=== PATIENT | male | born 1965 | race Caucasian/White ===

== ENCOUNTER 2020-04-16 12:25 | Inpatient (IN) | payer BC ==
[2020-04-16 12:44] LABS: HEMATOCRIT 28.8 % (37.9-51.0); HEMOGLOBIN 9.7 g/dL (13.5-17.0); MEAN CORPUSCULAR HEMOGLOBIN 34.7 pg (27.0-33.4); MEAN CORPUSCULAR HGB CONC 33.6 g/dL (32.0-36.0); MEAN CORPUSCULAR VOLUME 103 fl (80-97); RED BLOOD COUNT 2.79 10^6/uL (4.35-5.55); WHITE BLOOD COUNT 14.3 10^3/uL (4.0-10.5)
[2020-04-16 12:47] LABS: INTERNATIONAL RATION (INR) 2.01; PROTHROMBIN TIME 22.8 SEC (11.4-15.4)
--- NOTE | 2020-04-16 12:55 | ER Document Report ---
ED General - General Stated Complaint: UNRESPONSIVE Time Seen by Provider: 04/16/20 12:35 Mode of Arrival: Medic Information source: Emergency Med Personnel Cannot obtain history due to: Intubated Notes: Patient is a 54-year-old male brought into the emergency department by EMS. Patient was found at home to be unresponsive. states the patient was seen at [facility] yesterday. She states this morning the last time she checked on him was 7 AM and she thought he was sleeping however as the day went on she realized that he was unresponsive. EMS state that the patient has a history of cirrhosis otherwise no known medical history except for a ventral hernia and an umbilical hernia. They state that the patient was seen yesterday at the other hospital for the umbilical hernia. The remainder of history of present illness and review of systems is unobtainable secondary to the patient condition. TRAVEL OUTSIDE OF THE [place] IN LAST 30 DAYS: No - HPI Onset: This morning Onset/Duration: Persistent Quality of pain: No pain Severity: None Pain Level: Denies Associated symptoms: Shortness of breath Exacerbated by: Denies Relieved by: Denies Similar symptoms previously: No Recently seen / treated by doctor: Yes - Related Data Allergies/Adverse Reactions: codeine Allergy (Verified 04/16/20 14:21) prednisone Allergy (Verified 04/16/20 14:21) Past Medical History - General Information source: Relative, Emergency Med Personnel Cannot obtain history due to: Intubated - Social History Smoking Status: Smoker,Current Status Unk Frequency of alcohol use: unk Drug Abuse: Other Lives with: Spouse/Significant other Family History: Other - uto Patient has suicidal ideation: No Patient has homicidal ideation: No GI Medical History: Reports: Hx Cirrhosis, Other - ventral hernia, umbilical hernia Surgical Hx: Other - uto Review of Systems - Review of Systems -: Yes ROS unobtainable due to patient's medical condition Physical Exam - Vital signs Vitals: Resp Pulse Ox 12 100 04/16/20 12:24 04/16/20 12:24 - Notes Notes: PHYSICAL EXAMINATION: GENERAL: Patient is a 54-year-old male presenting to the emergency department intubated via EMS secondary to unresponsiveness HEAD: Atraumatic, normocephalic. EYES: Pupils equal round sclera anicteric, conjunctiva are mildly injected. ENT: nares patent, oropharynx clear without exudates. Moist mucous membranes. NECK: Trachea is midline neck secured by c-collar, supple without lymphadenopathy, no appreciable JVD LUNGS: Lungs clear to auscultation bilaterally and equal. No wheezes rales or rhonchi. HEART: Regular rate and rhythm without murmurs ABDOMEN: Soft, nontender, normal bowel sounds. No guarding, no rebound. No masses appreciated. EXTREMITIES: Active full range of motion, no pitting or edema. No cyanosis. 2+ pulses x4 NEUROLOGICAL: No focal neurological deficits. Moves all extremities spontaneously and on command. SKIN: Warm, Dry, and intact. Normal turgor, no rashes or lesions noted. Course - Re-evaluation Re-evalutation: 04/16/20 17:01 On presentation to the emergency department [facility] and evaluation of heart and lungs was accomplished by me. I instructed respiratory therapy to move the endotracheal tube back 1 cm due to right-sided lung sounds only. EKG radiologic studies as well as laboratory studies were ordered. Patient has been maintained on a bus driver/monitor the entire time in the [facility]. As of this time the patient has not needed any further sedation. Endotracheal tube, [place] catheter and NG tube are all in place without difficulty. Radiology did call and request that the ET tube be backed up another several centimeters because it was still right mainstem. I talked at great length with the patient's she stated that they were seen at another facility yesterday because of abdominal pain and concern for small bowel obstruction but were eventually discharged and instructed to follow-up. states the patient has longstanding alcoholic cirrhosis and does take lactulose at home but because of abdominal pain nausea and vomiting he has not been taking as much recently. She states that about 10:00 last night she went to sleep. She states this morning when she woke up was still in his recliner chair was maintaining an airway but sleeping. She states later on when she tried to arouse him she realized that he was not arousable and activated EMS. Patient laboratory studies have been reviewed. Patient has received lactulose through the NG tube because of remarkably elevated ammonia level. Patient is also received 2 L IV fluids because of elevated lactate level and slightly dilated potassium level. Patient has been consulted to the stunt driver for admission. He is agreeable with admitting the patient and is agreeable with care plan as has been initiated at this time. - Vital Signs Vital signs: Temp Pulse Resp BP Pulse Ox 95.9 F L 12 136/62 H 100 04/16/20 16:21 04/16/20 16:21 04/16/20 16:21 04/16/20 16:29 - Laboratory Result Diagrams: 04/16/20 12:23 04/16/20 12:23 Laboratory results interpreted by me: 04/16/20 04/16/20 04/16/20 12:23 12:23 12:23 WBC 14.3 H RBC 2.79 L Hgb 9.7 L Hct 28.8 L MCV 103 H MCH 34.7 H RDW 16.0 H Plt Count 144 L Monocytes % (Manual) 2 L Metamyelocytes % 2 H Abs Neuts (Manual) 11.9 H PT 22.8 H APTT ABG pH ABG pO2 ABG HCO3 ABG Total CO2 ABG O2 Saturation Potassium 5.6 H Carbon Dioxide 15 L Anion Gap 22 H BUN 53 H Creatinine 4.02 H Est GFR ( Amer) 19 L Est GFR (MDRD) Non-Af 16 L Glucose 152 H Lactic Acid Total Bilirubin 4.0 H Direct Bilirubin 1.0 H Ammonia NT-Pro-B Natriuret Pep Lipase 394.6 H Urine Protein Salicylates < 1.0 L Acetaminophen < 10 L 04/16/20 04/16/20 04/16/20 12:23 12:23 12:23 WBC RBC Hgb Hct MCV MCH RDW Plt Count Monocytes % (Manual) Metamyelocytes % Abs Neuts (Manual) PT APTT ABG pH ABG pO2 ABG HCO3 ABG Total CO2 ABG O2 Saturation Potassium Carbon Dioxide Anion Gap BUN Creatinine Est GFR ( Amer) Est GFR (MDRD) Non-Af Glucose Lactic Acid 10.7 H Total Bilirubin Direct Bilirubin Ammonia 1278.3 H NT-Pro-B Natriuret Pep 772 H Lipase Urine Protein Salicylates Acetaminophen 04/16/20 04/16/20 04/16/20 12:34 14:23 14:23 WBC RBC Hgb Hct MCV MCH RDW Plt Count Monocytes % (Manual) Metamyelocytes % Abs Neuts (Manual) PT APTT ABG pH 7.17 L* ABG pO2 149.4 H ABG HCO3 15.4 L ABG Total CO2 16.7 L ABG O2 Saturation 98.4 H Potassium Carbon Dioxide Anion Gap BUN Creatinine Est GFR ( Amer) Est GFR (MDRD) Non-Af Glucose Lactic Acid Total Bilirubin Direct Bilirubin Ammonia 1104.0 H NT-Pro-B Natriuret Pep Lipase Urine Protein 30 H Salicylates Acetaminophen 04/16/20 15:55 WBC RBC Hgb Hct MCV MCH RDW Plt Count Monocytes % (Manual) Metamyelocytes % Abs Neuts (Manual) PT 23.3 H APTT 40.5 H ABG pH ABG pO2 ABG HCO3 ABG Total CO2 ABG O2 Saturation Potassium Carbon Dioxide Anion Gap BUN Creatinine Est GFR ( Amer) Est GFR (MDRD) Non-Af Glucose Lactic Acid Total Bilirubin Direct Bilirubin Ammonia NT-Pro-B Natriuret Pep Lipase Urine Protein Salicylates Acetaminophen - Diagnostic Test Radiology reviewed: Reports reviewed - EKG Interpretation by Me EKG shows normal: Sinus rhythm Rate: Tachycardia Rhythm: NSR When compared to previous EKG there are: Previous EKG unavailable Additional EKG results interpreted by me: 04/16/20 12:54 EKG is interpreted by me shows sinus tachycardia rate of 114 bpm there is no ST elevation no axis deviation no ectopy at this time there is no old EKG available for comparison. Critical Care Note - Critical Care Note Total time excluding time spent on procedures (mins): 45 Comments: Please allow 45 minutes of critical care time spent obtaining history from patient or surrogate, discussions with consultants, development of treatment plan with patient or surrogate, evaluation of patient's response to treatment, examination of patient. This also includes ordering and reviewing laboratory, EKG and / or radiologic studies, performing and reassessing treatments and interventions as well as reviewing previous visits and old charts. This is exclusive of separately billable procedures. Discharge - Discharge Clinical Impression: Hyperammonemia, Elevated lactic acid level, Hyperkalemia Altered mental status Qualifiers: Altered mental status type: coma Coma depth: [place]lyss[place] coma 3-8 Coma timing: in the field (EMT or ambulance) Qualified Code(s): R40.2431 - [place] coma scale score 3-8, in the field [EMT or ambulance] Condition: Critical Disposition: ADMITTED INPATIENT Admitting Provider: Darrell (Fabric Designer) Unit Admitted: ICU
[2020-04-16 12:59] LABS: ABSOLUTE LYMPHOCYTES# (MANUAL) 2.1 10^3/uL (0.5-4.7); ABSOLUTE MONOCYTES # (MANUAL) 0.3 10^3/uL (0.1-1.4); BAND NEUTROPHILS % (MANUAL) 3 % (3-5); BASOPHILS % (MANUAL) 0 % (0-2); EOSINOPHILS % (MANUAL) 0 % (0-6); LYMPHOCYTES % (MANUAL) 14 % (13-45); METAMYELOCYTES % (MANUAL) 2 % (0-1); MONOCYTES % (MANUAL) 2 % (3-13); POIKILOCYTOSIS 1+; SEGMENTED NEUTROPHILS % (MAN) 78 % (42-78); TOTAL CELLS COUNTED 100
[2020-04-16 13:00] LABS: PLATELET CLUMPS PRESENT; PLATELET COMMENT DECREASED
[2020-04-16 13:01] LABS: POLYCHROMASIA SLIGHT
[2020-04-16 13:02] LABS: ALBUMIN 3.6 g/dL (3.5-5.0); ALKALINE PHOSPHATASE 102 U/L (38-126); ANISOCYTOSIS 1+; ASPARTATE AMINO TRANSFERASE 39 U/L (17-59); BLOOD UREA NITROGEN 53 mg/dL (7-20); CALCIUM 8.6 mg/dL (8.4-10.2); GLUCOSE 152 mg/dL (75-110); OVALOCYTES 1+; POTASSIUM 5.6 mmol/L (3.6-5.0); TOTAL PROTEIN 6.5 g/dL (6.3-8.2)
[2020-04-16 13:03] LABS: PLATELET COUNT 144 10^3/uL (150-450)
[2020-04-16 13:07] LABS: CARBON DIOXIDE 15 mmol/L (22-30); CHLORIDE 101 mmol/L (98-107)
[2020-04-16 13:09] LABS: ACETAMINOPHEN < 10 ug/mL (10-30); ALCOHOL < 10 mg/dL (NONE DETECTED); SALICYLATE < 1.0 mg/dL (2.0-20.0)
[2020-04-16 13:14] LABS: ANION GAP 22 (5-19); CREATINE KINASE MB 3.84 ng/mL (<4.55)
[2020-04-16 13:15] LABS: TROPONIN I 0.046 ng/mL
[2020-04-16 13:33] LABS: APPEARANCE,URINE SLIGHTLY-CLOUDY; BILIRUBIN,URINE NEGATIVE (NEGATIVE); GLUCOSE, URINE NEGATIVE (NEGATIVE); KETONES,URINE NEGATIVE (NEGATIVE); LEUKOCYTE ESTERASE,URINE NEGATIVE (NEGATIVE); NITRITE,URINE NEGATIVE (NEGATIVE); PROTEIN,URINE 30 mg/dL (NEGATIVE); URINE SPECIFIC GRAVITY 1.019; UROBILINOGEN,URINE NEGATIVE mg/dL (<2.0)
[2020-04-16 13:34] LABS: COLOR,URINE ORANGE
[2020-04-16 13:44] LABS: URINE AMPHETAMINES SCREEN NEGATIVE; URINE BARBITURATES SCREEN NEGATIVE; URINE BENZODIAZEPINES SCREEN NEGATIVE; URINE COCAINE SCREEN NEGATIVE; URINE MARIJUANA (THC) SCREEN NEGATIVE; URINE METHADONE SCREEN NEGATIVE; URINE PHENCYCLIDINE SCREEN NEGATIVE
[2020-04-16] MEDS ORDERED: LACTULOSE SYRUP 20 GM/30 ML UDCUP PO ONE (14:02)
[2020-04-16 14:42] LABS: ARTERIAL BLOOD BASE EXCESS -12.4 mmol/L; ARTERIAL BLOOD H2CO3 1.29 mmol/L (1.05-1.35); ARTERIAL BLOOD HCO3 15.4 mmol/L (20-24); ARTERIAL BLOOD O2 SATURATION 98.4 % (94-98); ARTERIAL BLOOD PCO2 42.8 mmHg (35-45); ARTERIAL BLOOD PO2 149.4 mmHg (80-100); ARTERIAL BLOOD TOTAL CO2 16.7 mmol/L (23-27)
[2020-04-16 14:43] LABS: ARTERIAL BLOOD FIO2 50%
[2020-04-16 14:44] LABS: ARTERIAL BLOOD PH 7.17 (7.35-7.45)
[2020-04-16] MEDS: NORMAL SALINE 1000 ML 1,000 ML IV PRN ×2 (14:54→15:58)
--- NOTE | 2020-04-16 15:14 | EKG REPORT ---
SEVERITY:- BORDERLINE ECG - SINUS TACHYCARDIA BORDERLINE R WAVE PROGRESSION, ANTERIOR LEADS BORDERLINE PROLONGED QT INTERVAL : Confirmed by: Hollie Welch MD 16-Apr-2020 15:13:31
[2020-04-16 16:40] LABS: INTERNATIONAL RATION (INR) 2.06; PROTHROMBIN TIME 23.3 SEC (11.4-15.4)
[2020-04-16 16:41] LABS: PARTIAL THROMBOPLASTIN TIME 40.5 SEC (23.5-35.8)
--- NOTE | 2020-04-16 17:19 | RADIOLOGY REPORT (SQ) ---
EXAM DESCRIPTION: CT CERVICAL SPINE WITHOUT IMAGES COMPLETED DATE/TIME: 04/16/2020 1:56 pm REASON FOR STUDY: ams COMPARISON: None. TECHNIQUE: Axial images acquired through the cervical spine without intravenous contrast. Images re viewed with lung, soft tissue and bone windows. Reconstructed coronal and sagittal MPR images review ed. Images stored on PACS. All CT scanners at this facility use dose modulation, iterative reconstruction, and/or weight based d osing when appropriate to reduce radiation dose to as low as reasonably achievable (ALARA). [facility]: Dose Right [facility]: CareDose [facility]: Dose Right [facility]: Teradose 4D [facility]: [facility] RADIATION DOSE: mGy. LIMITATIONS: None. FINDINGS: ALIGNMENT: Anatomic. MINERALIZATION: Normal. VERTEBRAL BODIES: No fractures or dislocation. DISCS: Mild disc space narrowing with small osteophytes. FACETS, LATERAL MASSES, POSTERIOR ELEMENTS: No fractures. No dislocation. No acute findings. HARDWARE: None in the spine. VISUALIZED RIBS: No fractures. LUNG APICES AND SOFT TISSUES: No significant or acute findings. OTHER: No other significant finding. IMPRESSION: MILD DEGENERATIVE DISC DISEASE. NO ACUTE FINDINGS IN THE CERVICAL SPINE. TECHNICAL DOCUMENTATION: JOB ID: [id number] Quality ID # [id number]: Final reports with documentation of one or more dose reduction techniques (e.g., Au tomated exposure control, adjustment of the mA and/or kV according to patient size, use of iterative reconstruction technique) 2010 [employer]- All Rights Reserved Reading location - IP/workstation name: [email or web address]
--- NOTE | 2020-04-16 17:27 | RADIOLOGY REPORT (SQ) ---
EXAM DESCRIPTION: CHEST SINGLE VIEW IMAGES COMPLETED DATE/TIME: 04/16/2020 1:26 pm REASON FOR STUDY: intubation COMPARISON: None. EXAM PARAMETERS: NUMBER OF VIEWS: One view. TECHNIQUE: Single frontal radiographic view of the chest acquired. RADIATION DOSE: NA LIMITATIONS: None. FINDINGS: LUNGS AND PLEURA: Volume loss on the left with scattered parenchymal densities. Right jennifer g clear and may be hyperinflated. MEDIASTINUM AND HILAR STRUCTURES: No masses. Contour normal. HEART AND VASCULAR STRUCTURES: Heart normal in size. Normal vasculature. BONES: No acute findings. HARDWARE: Endotracheal tube, tip in the right mainstem bronchus. Nasogastric tube, tip in the stomac h. OTHER: No other significant finding. IMPRESSION: 1. THE TIP OF THE ENDOTRACHEAL TUBE IS IN THE RIGHT MAINSTEM BRONCHUS AND SHOULD BE WITHDRAWN BY 4-5 CM. 2. VOLUME LOSS IN THE LEFT LUNG WITH SCATTERED PARENCHYMAL DENSITIES, MAY BE DUE TO ATELECTASIS. UND ERLYING PNEUMONIA CANNOT BE EXCLUDED. 3. THE ED PROVIDER WAS NOTIFIED OF THE FINDINGS WITH REGARD TO THE ENDOTRACHEAL TUBE. TECHNICAL DOCUMENTATION: JOB ID: [id number] 2010 [employer]- All Rights Reserved Reading location - IP/workstation name: [email or web address]
--- NOTE | 2020-04-16 17:34 | RADIOLOGY REPORT (SQ) ---
EXAM DESCRIPTION: CT HEAD WITHOUT IMAGES COMPLETED DATE/TIME: 04/16/2020 1:56 pm REASON FOR STUDY: intubation COMPARISON: None. TECHNIQUE: Axial images acquired through the brain without intravenous contrast. Images reviewed wi th bone, brain and subdural windows. Additional sagittal and coronal reconstructions were generated. Images stored on PACS. All CT scanners at this facility use dose modulation, iterative reconstruction, and/or weight based d osing when appropriate to reduce radiation dose to as low as reasonably achievable (ALARA). [facility]: Dose Right [facility]: CareDose [facility]: Dose Right [facility]: Teradose 4D [facility]: [employer] RADIATION DOSE: mGy. LIMITATIONS: None. FINDINGS: VENTRICLES: Normal size and contour. CEREBRUM: No masses. No hemorrhage. No midline shift. No evidence for acute infarction. Normal gra y/white matter differentiation. No areas of low density in the white matter. CEREBELLUM: No masses. No hemorrhage. No alteration of density. No evidence for acute infarction. EXTRAAXIAL SPACES: No fluid collections. No masses. ORBITS AND GLOBE: No intra- or extraconal masses. Normal contour of globe without masses. CALVARIUM: No fracture. PARANASAL SINUSES: No fluid or mucosal thickening. SOFT TISSUES: No mass or hematoma. OTHER: No other significant finding. IMPRESSION: NORMAL BRAIN CT WITHOUT CONTRAST. EVIDENCE OF ACUTE STROKE: NO. COMMENT: Quality ID # [id number]: Final reports with documentation of one or more dose reduction techniques (e.g., Automated exposure control, adjustment of the mA and/or kV according to patient size, use of iterative reconstruction technique) TECHNICAL DOCUMENTATION: JOB ID: [id number] 2010 [employer]- All Rights Reserved Reading location - IP/workstation name: [email or web address]
--- NOTE | 2020-04-16 17:58 | RADIOLOGY REPORT (SQ) ---
EXAM DESCRIPTION: CHEST SINGLE VIEW IMAGES COMPLETED DATE/TIME: 04/16/2020 5:39 pm REASON FOR STUDY: placement verification of ET tube COMPARISON: 04/16/2020 EXAM PARAMETERS: NUMBER OF VIEWS: One view. TECHNIQUE: Single frontal radiographic view of the chest acquired. RADIATION DOSE: NA LIMITATIONS: None. FINDINGS: LUNGS AND PLEURA: Improved aeration of the left hemithorax. No large pleural effusion or pneumothorax are demonstrated. MEDIASTINUM AND HILAR STRUCTURES: No masses. Contour normal. HEART AND VASCULAR STRUCTURES: Heart normal in size. Normal vasculature. BONES: No acute findings. HARDWARE: Interval retraction of the endotracheal tube, which now terminates approximately 2.5 cm aircraft rigging and controls mechanic nial to the kenzie. Enteric tube terminates subdiaphragmatically out of the imaged field of view. OTHER: No other significant finding. IMPRESSION: Improved aeration of the left hemithorax on the basis retraction of the endotracheal tub e which now terminates approximately 2.5 cm cranial to the kenzie. Stable enteric tube. TECHNICAL DOCUMENTATION: JOB ID: [id number] 2010 [employer]- All Rights Reserved Reading location - IP/workstation name: [email or web address]
[2020-04-16] MEDS: CEFTRIAXONE 2 GM/D5W RTU 2 GM/50 ML RTUPB IV SCH (18:27)
[2020-04-16] MEDS: MIDAZOLAM 2 MG/2 ML INJ IV PRN ×3 (20:10→21:56)
[2020-04-16] MEDS: DEXTROSE 5%-WATER 1000 ML 1,000 ML with SODIUM BICARBONATE 150 MEQ IV PRN ×2 (20:11)
--- NOTE | 2020-04-16 21:04 | RADIOLOGY REPORT (SQ) ---
EXAM DESCRIPTION: Site: CHEST SINGLE VIEW RP: XR CHEST 1 VIEW CLINICAL HISTORY: 54 years Male; Resp Failure, Re-eval ETT position; FINDINGS: AP chest at 2020. Since 1731, endotracheal tube remains in place, estimated 2.5 cm above kenzie. Enteric tube extends into the stomach. Lungs are unchanged. No pneumothorax. IMPRESSION: 1. No significant change
[2020-04-16] MEDS ORDERED: LORAZEPAM INJ 2 MG/1 ML VIAL ONE (23:11)
[2020-04-16] MEDS ORDERED: ACETAMINOPHEN 650 MG SUPP.RECT PR PRN (23:12)
[2020-04-16] MEDS: LORAZEPAM INJ 2 MG/1 ML VIAL IV PRN (23:14)
--- NOTE | 2020-04-16 23:33 | Progress Note ---
Provider Note Provider Note: Called to bedside after arrival from ED. Pt with active sz. Moving eye twitching, facial movements, RUE, RLE in a rhythmic fashion. ETT in place Hemodynamics maintained. Decreased SpO2 2/2 above. Given ativan 2mg IV with resolution. D/c versed, ativan prn, drip if needed. Waiting Keppra from pharmacy/supervisor grain and yeast plants.
[2020-04-17] MEDS ORDERED: LEVETIRACETAM INJ/PF 500 MG/5 ML SDV IV ONE (00:25)
[2020-04-17] MEDS: LEVETIRACETAM 1000 MG/NACL-ISO 1,000 MG/100 ML RTUPB IV SCH ×3 (00:50→22:14)
[2020-04-17] MEDS ORDERED: LORAZEPAM INJ 2 MG/1 ML VIAL IV ONE (01:15)
[2020-04-17] MEDS: LORAZEPAM INJ 2 MG/1 ML VIAL IV PRN (03:41)
[2020-04-17 07:26] LABS: HEMATOCRIT 26.8 % (37.9-51.0); HEMOGLOBIN 9.2 g/dL (13.5-17.0); MEAN CORPUSCULAR HEMOGLOBIN 34.5 pg (27.0-33.4); MEAN CORPUSCULAR HGB CONC 34.4 g/dL (32.0-36.0); MEAN CORPUSCULAR VOLUME 100 fl (80-97); PLATELET COUNT 122 10^3/uL (150-450); RED BLOOD COUNT 2.67 10^6/uL (4.35-5.55); RED CELL DISTRIBUTION WIDTH 15.7 % (11.5-14.0); WHITE BLOOD COUNT 16.8 10^3/uL (4.0-10.5)
[2020-04-17 07:47] LABS: ANION GAP 16 (5-19); BLOOD UREA NITROGEN 71 mg/dL (7-20); CALCIUM 8.2 mg/dL (8.4-10.2); CARBON DIOXIDE 20 mmol/L (22-30); CHLORIDE 102 mmol/L (98-107); GLUCOSE 176 mg/dL (75-110)
[2020-04-17 07:51] LABS: POTASSIUM 4.3 mmol/L (3.6-5.0)
[2020-04-17] MEDS: DEXTROSE 5%-WATER 1000 ML 1,000 ML with SODIUM BICARBONATE 150 MEQ IV PRN ×4 (08:30→22:14)
[2020-04-17 09:05] LABS: ARTERIAL BLOOD BASE EXCESS -1.8 mmol/L; ARTERIAL BLOOD H2CO3 0.73 mmol/L (1.05-1.35); ARTERIAL BLOOD HCO3 19.9 mmol/L (20-24); ARTERIAL BLOOD O2 SATURATION 98.7 % (94-98); ARTERIAL BLOOD PCO2 24.3 mmHg (35-45); ARTERIAL BLOOD PH 7.53 (7.35-7.45); ARTERIAL BLOOD PO2 118.5 mmHg (80-100); ARTERIAL BLOOD TOTAL CO2 20.7 mmol/L (23-27)
[2020-04-17 09:06] LABS: ARTERIAL BLOOD FIO2 40%
--- NOTE | 2020-04-17 09:24 | CRITICAL CARE ADMISSION REPORT ---
HPI Date:: 04/16/20 Time:: 16:10 Reason for ICU Reason:: Unconsciousness, acute Respiraory Failure, Decompensated cirrhosis Admission Date/Time & PCP: Admission Date/Time: Primary Care Provider: HUGO TEJADA HPI: Patient is a 54-year-old male brought into the emergency department by EMS. Patient was found at home to be unresponsive. states the patient was seen at [facility] yesterday. She states this morning the last time she checked on him was 7 AM and she thought he was sleeping however as the day went on she realized that he was unresponsive. EMS state that the patient has a history of cirrhosis otherwise no known medical history except for a ventral hernia and an umbilical hernia. They state that the patient was seen yesterday at the other hospital for the umbilical hernia. The remainder of history of present illness and review of systems is unobtainable secondary to the patient condition. I was called by the ED physician after the patient was intubated and preliminary arianne obtained. As noted the patient has a long history of alcohol related cirrhosis. He presented with severe obtundation and "guppy-type" breathing to EMS who were called by thepatient's . The patient has been unresponsive for over 3 hours. The patient had a GCS of about 3 when I saw him in the ED. CT of the head is pending. He has a metabolic acidosis. He has renal insufficiency with a creat. of 4 of unknown duration. His blood sugar was slightly elevated when checked in the ED. His ammonia level was recorded as 1278. I do not believe the patient has had any recent GI bleed. His serum lactate was 10. The patient has a history of ascites and has had paracenteses in the past - Diagnosis/Plan (2) Altered mental status Qualifiers: Altered mental status type: coma Coma depth: [place] coma 3-8 Coma timing: in the field (EMT or ambulance) Qualified Code(s): R40.2431 - [place] coma scale score 3-8, in the field [EMT or ambulance] Is this a current diagnosis for this admission?: Yes Plan: The patient is clearly comatose. Unclear to what extent this is the result of liver decompensation or perhaps an infection or seizur eis unclear. The patienthas been placed onKeppra. He has been start on lactulose. EEG has been ordered The patient has been placed on IV Rocephin given his low grade fever and elevated WBC (3) Elevated lactic acid level Is this a current diagnosis for this admission?: Yes Plan: The patient presented acutely ill. He had a fever to 101. The source of fever is unclear. Unclear of the patient was shocky in the filed. if he had seized that could have cointributed to the lactate acidosis. in addition, given his comprromised liver fn. His abiolity ot clear lactat quickly idoes not exist. (4) Hyperammonemia Is this a current diagnosis for this admission?: Yes Plan: The patient has one of the highest ammonia levels I have ever seen. He is onlactulose and Rifaximin. I imagine it willtake several days to bring this number down to be able for him to wake up. CT head was unreamrkable. (5) Hyperkalemia Is this a current diagnosis for this admission?: Yes Plan: Likely secondary to acute kidney injury and acidemia.. (6) Acute kidney injury Is this a current diagnosis for this admission?: Yes Plan: The patient presents with an elevated serum creatinine of >4. His output is very poor The patient is likely to need GAS CONTROLLER in the next 24 hours. Will consult Nephrology. I don't see evidence of old renal fn. I just spke to his and she said his creat was 2.9 2 days ago. She said his assistant plant control operator was trying to get him in to see a nehrologist latelt. Past Medical History GI Medical History: Reports: Cirrhosis, Other - ventral hernia, umbilical hernia Social/Family History - Social History Lives with: Spouse/Significant other Smoking Status: Smoker,Current Status Unk - Medication/Allergies Home Medications: B Complx/C/Folic/Zinc/Copper/E [Eql Stress B-Complex Tablet] 1 tab PO DAILY 04/16/20 Calcium Carbonate/Vitamin D3 [Calcium 600 mg-D3 20 Mcg Tab] 1 tab PO BID 04/16/20 Cetirizine HCl [Zyrtec 10 mg Tablet] 10 mg PO DAILYP PRN 04/16/20 Ciprofloxacin HCl [Cipro 500 mg Tablet] 500 mg PO DAILY 04/16/20 Famotidine [Pepcid 20 mg Tablet] 40 mg PO DAILY 04/16/20 Hydrocodone/Acetaminophen [[place] 5-325 mg Tablet] 1 tab PO Q6HP PRN 04/16/20 Lactulose [Enulose] 30 ml PO TIDP PRN 04/16/20 Mirtazapine [Remeron 15 mg Tablet] 7.5 mg PO QHS 04/16/20 Multivit-Minerals/FA/Lycopene [One Daily Tablet] 1 tab PO DAILY 04/16/20 Omeprazole 40 mg PO DAILY 04/16/20 Ondansetron [Zofran Odt 4 mg Tablet] 4 mg PO Q8HP PRN 04/16/20 Rifaximin [Xifaxan 550 mg Tablet] 550 mg PO BID 04/16/20 Allergies/Adverse Reactions: codeine Allergy (Verified 04/16/20 14:21) prednisone Allergy (Verified 04/16/20 14:21) Physical Exam Vital Signs: Temp Pulse Resp BP Pulse Ox 95.1 F L 12 132/59 H 96 04/16/20 15:21 04/16/20 15:21 04/16/20 15:21 04/16/20 15:43 Intake & Output 04/15/20 04/16/20 04/17/20 06:59 06:59 06:59 Intake Total 1000 Balance 1000 Weight 84.3 kg Weight/Height Weight 84.3 kg Laboratory/Radiographs Laboratory Results: 04/16/20 12:23 04/16/20 12:23 04/16/20 04/16/20 04/16/20 12:23 12:23 12:23 WBC 14.3 H RBC 2.79 L Hgb 9.7 L Hct 28.8 L MCV 103 H MCH 34.7 H MCHC 33.6 RDW 16.0 H Plt Count 144 L Seg Neutrophils % Not Reportable Carbonic Acid HCO3/H2CO3 Ratio ABG pH ABG pCO2 ABG pO2 ABG HCO3 ABG O2 Saturation ABG Base Excess FiO2 Sodium 138.1 Potassium 5.6 H Chloride 101 Carbon Dioxide 15 L Anion Gap 22 H BUN 53 H Creatinine 4.02 H Est GFR ( Amer) 19 L Glucose 152 H Lactic Acid 10.7 H Calcium 8.6 Total Bilirubin 4.0 H AST 39 Alkaline Phosphatase 102 Ammonia Total Protein 6.5 Albumin 3.6 Lipase 394.6 H Urine Color Urine Appearance Urine pH Ur Specific [place] Urine Protein Urine Glucose (UA) Urine Ketones Urine Blood Urine Nitrite Ur Leukocyte Esterase Urine WBC (Auto) Urine RBC (Auto) 04/16/20 04/16/20 04/16/20 12:23 12:34 14:23 WBC RBC Hgb Hct MCV MCH MCHC RDW Plt Count Seg Neutrophils % Carbonic Acid 1.29 HCO3/H2CO3 Ratio 11:1 ABG pH 7.17 L* ABG pCO2 42.8 ABG pO2 149.4 H ABG HCO3 15.4 L ABG O2 Saturation 98.4 H ABG Base Excess -12.4 FiO2 50% Sodium Potassium Chloride Carbon Dioxide Anion Gap BUN Creatinine Est GFR ( Amer) Glucose Lactic Acid Calcium Total Bilirubin AST Alkaline Phosphatase Ammonia 1278.3 H Total Protein Albumin Lipase Urine Color ORANGE Urine Appearance SLIGHTLY-CLOUDY Urine pH 5.0 Ur Specific [place] 1.019 Urine Protein 30 H Urine Glucose (UA) NEGATIVE Urine Ketones NEGATIVE Urine Blood NEGATIVE Urine Nitrite NEGATIVE Ur Leukocyte Esterase NEGATIVE Urine WBC (Auto) 7 Urine RBC (Auto) 1 04/16/20 12:23 CK-MB (CK-2) 3.84 Troponin I 0.046 NT-Pro-B Natriuret Pep 772 H Critical Time Critical Time (minutes): 70 -: The care of a critically ill patient is dynamic. This note represents a static moment in the admission process. Orders and treatments may be given simultaneously and urgently, and time is not specialty sales representative of the treatment process. This patient requires Critical Care secondary to life threatening organ or limb dysfunction. Without Critical Care services, the patient is at risk for increased mortality and morbidity.
[2020-04-17] MEDS: LACTULOSE SYRUP 20 GM/30 ML UDCUP PO SCH ×3 (09:42→22:13)
[2020-04-17] MEDS: CEFTRIAXONE 2 GM/D5W RTU 2 GM/50 ML RTUPB IV SCH (09:43)
[2020-04-17] MEDS ORDERED: RIFAXIMIN 550 MG TABLET PO SCH (11:00)
--- NOTE | 2020-04-17 11:11 | RADIOLOGY REPORT (SQ) ---
EXAM DESCRIPTION: U/S RETROPERITON (RENAL/AORTA) IMAGES COMPLETED DATE/TIME: 04/17/2020 10:49 am REASON FOR STUDY: AMANDA COMPARISON: None. TECHNIQUE: Dynamic and static grayscale images acquired of the kidneys and bladder and recorded on P ACS. Additional selected color Doppler and spectral images recorded. LIMITATIONS: Study is limited the patient is intubated and could not follow instructions. FINDINGS: RIGHT KIDNEY: Normal size. Normal echogenicity. No solid or suspicious masses. No hydronep hrosis. No calcifications. LEFT KIDNEY: Normal size. Normal echogenicity. No solid or suspicious masses. No hydronephrosis. No calcifications. BLADDER: No masses. OTHER FINDINGS: There is small to moderate volume ascites. IMPRESSION: NORMAL RENAL AND BLADDER ULTRASOUND. TECHNICAL DOCUMENTATION: JOB ID: [id number] 2010 [employer]- All Rights Reserved Reading location - IP/workstation name: [email or web address]
--- NOTE | 2020-04-17 11:59 | PDOC CONSULTATION ---
Consultation Consult Date: 04/17/20 Provider Consulted: Shubham PARK Consult reason:: AMANDA History of Present Illness Admission Date/PCP: 04/16/20 16:33 HUGO TEJADA History of Present Illness: CARLIN KATZ is a 54 year old male was seen in the ICU today. He is intubated and sedated. Therefore history was done by chart review and discussions done with the treating nurse/biology teacher. Patient was admitted to the ER after being found unresponsive by his . Apparently the patient was discharged from [facility] a couple of days ago where he was apparently see n for evaluation of abdominal hernia apparently. As per notes reviewed the states that his creatinine has been around 2-3 and her pathologist was in the process of referring this patient to a restrooms or lounges maid.Patient has got underlying alcoholic cirrhosis with portal hypertension and apparently has been undergoing large-volume paracentesis every 1 to 2 weeks. Unsure to the circumstances around which the patient was found unresponsive. Unsure of any trauma or seizure disorder but note patient has been begun on Keppra. Labs and medications were reviewed. As stated metabolic acidosis and his lactic acid is quite high. His blood sugars were adequate and his ammonia levels was over 1000. Obviously has got AMANDA with rising creatinine from 4+. Covid pending. Patient is rather oligoanuric. Is got severe acidosis and is on a bicarbonate drip. Past Medical History GI Medical History: Reports: Cirrhosis, Other - ventral hernia, umbilical hernia Psychiatric Medical History: Denies: Depression Social History Lives with: Spouse/Significant other Smoking Status: Smoker,Current Status Unk Frequency of Alcohol Use: None - Advance Directive Resuscitation Status: Full Code Family History Parental Family History Reviewed: No - Patient intubated and sedated Children Family History Reviewed: No Sibling(s) Family History Reviewed.: No Medication/Allergy Home Medications: B Complx/C/Folic/Zinc/Copper/E [Eql Stress B-Complex Tablet] 1 tab PO DAILY 04/16/20 Calcium Carbonate/Vitamin D3 [Calcium 600 mg-D3 20 Mcg Tab] 1 tab PO BID 04/16/20 Cetirizine HCl [Zyrtec 10 mg Tablet] 10 mg PO DAILYP PRN 04/16/20 Ciprofloxacin HCl [Cipro 500 mg Tablet] 500 mg PO DAILY 04/16/20 Famotidine [Pepcid 20 mg Tablet] 40 mg PO DAILY 04/16/20 Hydrocodone/Acetaminophen [[place] 5-325 mg Tablet] 1 tab PO Q6HP PRN 04/16/20 Lactulose [Enulose] 30 ml PO TIDP PRN 04/16/20 Mirtazapine [Remeron 15 mg Tablet] 7.5 mg PO QHS 04/16/20 Multivit-Minerals/FA/Lycopene [One Daily Tablet] 1 tab PO DAILY 04/16/20 Omeprazole 40 mg PO DAILY 04/16/20 Ondansetron [Zofran Odt 4 mg Tablet] 4 mg PO Q8HP PRN 04/16/20 Rifaximin [Xifaxan 550 mg Tablet] 550 mg PO BID 04/16/20 Allergies/Adverse Reactions: codeine Allergy (Verified 04/16/20 14:21) prednisone Allergy (Verified 04/16/20 14:21) Review of Systems ROS unobtainable: Due to endotracheal tube - Chart review was done and discussions done with the treating nurse/biology teacher., Due to mental status Physical Exam Vital Signs: Temp Pulse Resp BP Pulse Ox 99.0 F 103 H 24 H 131/66 H 100 04/17/20 10:27 04/17/20 10:17 04/17/20 10:27 04/17/20 10:27 04/17/20 10:27 Intake & Output 04/16/20 04/17/20 04/18/20 06:59 06:59 06:59 Intake Total 2150 1000 Output Total 90 40 Balance 2060 960 Weight 84.6 kg General appearance: PRESENT: disheveled Exam: Patient currently intubated and sedated. Has abdominal distention from ascites Eye exam: PRESENT: EOMI, PERRLA, scleral icterus Mouth exam: PRESENT: neck supple Neck exam: ABSENT: lymphadenopathy, meningismus, tenderness, thyromegaly, tracheal deviation Respiratory exam: PRESENT: clear to auscultation mayela, decreased breath sounds. ABSENT: crackles Cardiovascular exam: PRESENT: +S1, +S2 GI/Abdominal exam: PRESENT: ascites, distended, normal bowel sounds, soft. ABSENT: organomegaly, tenderness Extremities exam: ABSENT: pedal edema Neurological exam: PRESENT: altered Skin exam: ABSENT: erythema, mottled, rash Results Laboratory Results: 04/17/20 07:02 04/17/20 07:02 04/16/20 04/16/20 04/16/20 12:23 12:23 12:23 WBC 14.3 H RBC 2.79 L Hgb 9.7 L Hct 28.8 L MCV 103 H MCH 34.7 H MCHC 33.6 RDW 16.0 H Plt Count 144 L Seg Neutrophils % Not Reportable Carbonic Acid HCO3/H2CO3 Ratio ABG pH ABG pCO2 ABG pO2 ABG HCO3 ABG O2 Saturation ABG Base Excess FiO2 Sodium 138.1 Potassium 5.6 H Chloride 101 Carbon Dioxide 15 L Anion Gap 22 H BUN 53 H Creatinine 4.02 H Est GFR ( Amer) 19 L Glucose 152 H Lactic Acid 10.7 H Calcium 8.6 Magnesium Total Bilirubin 4.0 H AST 39 Alkaline Phosphatase 102 Ammonia Total Protein 6.5 Albumin 3.6 Lipase 394.6 H Urine Color Urine Appearance Urine pH Ur Specific [place] Urine Protein Urine Glucose (UA) Urine Ketones Urine Blood Urine Nitrite Ur Leukocyte Esterase Urine WBC (Auto) Urine RBC (Auto) 04/16/20 04/16/20 04/16/20 12:23 12:34 14:23 WBC RBC Hgb Hct MCV MCH MCHC RDW Plt Count Seg Neutrophils % Carbonic Acid HCO3/H2CO3 Ratio ABG pH ABG pCO2 ABG pO2 ABG HCO3 ABG O2 Saturation ABG Base Excess FiO2 Sodium Potassium Chloride Carbon Dioxide Anion Gap BUN Creatinine Est GFR ( Amer) Glucose Lactic Acid Calcium Magnesium Total Bilirubin AST Alkaline Phosphatase Ammonia 1278.3 H 1104.0 H Total Protein Albumin Lipase Urine Color ORANGE Urine Appearance SLIGHTLY-CLOUDY Urine pH 5.0 Ur Specific [place] 1.019 Urine Protein 30 H Urine Glucose (UA) NEGATIVE Urine Ketones NEGATIVE Urine Blood NEGATIVE Urine Nitrite NEGATIVE Ur Leukocyte Esterase NEGATIVE Urine WBC (Auto) 7 Urine RBC (Auto) 1 04/16/20 04/17/20 04/17/20 14:23 07:02 07:02 WBC 16.8 H RBC 2.67 L Hgb 9.2 L Hct 26.8 L MCV 100 H MCH 34.5 H MCHC 34.4 RDW 15.7 H Plt Count 122 L Seg Neutrophils % Carbonic Acid 1.29 HCO3/H2CO3 Ratio 11:1 ABG pH 7.17 L* ABG pCO2 42.8 ABG pO2 149.4 H ABG HCO3 15.4 L ABG O2 Saturation 98.4 H ABG Base Excess -12.4 FiO2 50% Sodium 138.2 Potassium 4.3 D Chloride 102 Carbon Dioxide 20 L Anion Gap 16 BUN 71 H Creatinine 4.91 H Est GFR ( Amer) 15 L Glucose 176 H Lactic Acid Calcium 8.2 L Magnesium 3.3 H Total Bilirubin AST Alkaline Phosphatase Ammonia Total Protein Albumin Lipase Urine Color Urine Appearance Urine pH Ur Specific [place] Urine Protein Urine Glucose (UA) Urine Ketones Urine Blood Urine Nitrite Ur Leukocyte Esterase Urine WBC (Auto) Urine RBC (Auto) 04/17/20 04/17/20 07:02 08:40 WBC RBC Hgb Hct MCV MCH MCHC RDW Plt Count Seg Neutrophils % Carbonic Acid 0.73 L HCO3/H2CO3 Ratio 27:1 ABG pH 7.53 H ABG pCO2 24.3 L ABG pO2 118.5 H ABG HCO3 19.9 L ABG O2 Saturation 98.7 H ABG Base Excess -1.8 FiO2 40% Sodium Potassium Chloride Carbon Dioxide Anion Gap BUN Creatinine Est GFR ( Amer) Glucose Lactic Acid Calcium Magnesium Total Bilirubin AST Alkaline Phosphatase Ammonia 226.1 H Total Protein Albumin Lipase Urine Color Urine Appearance Urine pH Ur Specific [place] Urine Protein Urine Glucose (UA) Urine Ketones Urine Blood Urine Nitrite Ur Leukocyte Esterase Urine WBC (Auto) Urine RBC (Auto) 04/16/20 12:23 CK-MB (CK-2) 3.84 Troponin I 0.046 NT-Pro-B Natriuret Pep 772 H Impressions: Head CT 04/16/20 12:28 IMPRESSION: NORMAL BRAIN CT WITHOUT CONTRAST. EVIDENCE OF ACUTE STROKE: NO. Cervical Spine CT 04/16/20 12:59 IMPRESSION: MILD DEGENERATIVE DISC DISEASE. NO ACUTE FINDINGS IN THE CERVICAL SPINE. Chest X-Ray 04/16/20 19:52 IMPRESSION: 1. No significant change Renal Ultrasound 04/17/20 00:00 IMPRESSION: NORMAL RENAL AND BLADDER ULTRASOUND. Assessment & Plan - Diagnosis (1) Acute kidney injury Is this a current diagnosis for this admission?: Yes Plan: Apparently patient has got underlying CKD of unknown etiology. Renal ultrasound done here was reviewed/does not show any obstructive uropathy. Differential diagnosis includes hepatorenal syndrome/(potential usage of nephrotoxic drugs like NSAIDs with acute insult now coming from worsening hepatic failure/possible rhabdomyolysis. Patient has got severe metabolic acidosis along with dropping urine output. Start IV fluids besides bicarbonate drip which could be tapered o ff once his bicarb is adequate and will follow that serially with labs. Recommend placement of a temporary dialysis catheter in the femoral vein and as long as he is hemodynamically stable we will plan to initiate hemodialysis by tomorrow morning. (2) Alcoholic cirrhosis of liver with ascites Plan: With obvious evidences of portal hypertension. Unsure of his esophageal varices. Unsure if he is a candidate for liver transplant. Overall poor prognosis. (3) Acute and subacute hepatic failure with coma Plan: As evidenced by his severe ammonia level of 1000. He is on appropriate treatments and his latest ammonia level today was 226. (4) Altered mental status Qualifiers: Altered mental status type: coma Coma depth: [place] coma 3-8 Coma timing: in the field (EMT or ambulance) Qualified Code(s): R40.2431 - Allyssa coma scale score 3-8, in the field [EMT or ambulance] Is this a current diagnosis for this admission?: Yes Plan: Secondary to hepatic encephalopathy with additional insults from AMANDA/Sepsis. (5) Elevated lactic acid level Is this a current diagnosis for this admission?: Yes Plan: Patient possibly is septic given his leukocytosis with left shift. However there are other causes of lactic acid elevation including liver failure.Patient currently on bicarbonate replacements with improvement. (6) Hyperammonemia Is this a current diagnosis for this admission?: Yes Plan: Secondary to hepatic encephalopathy. On appropriate treatments with improving numbers. (7) Hyperkalemia Is this a current diagnosis for this admission?: Yes Plan: Improved with appropriate treatments. Monitor closely.
[2020-04-17] MEDS: NORMAL SALINE 1000 ML 1,000 ML IV PRN (14:08)
[2020-04-17] MEDS: RIFAXIMIN 550 MG TABLET PO SCH ×2 (14:08→22:14)
--- NOTE | 2020-04-17 18:28 | Operative Report ---
Bedside Procedure - History of Present Illness Indication for Procedure: dialysis Date: 04/17/20 Provider: EUFEMIA LANIER - Central Line Right Femoral Time completed: 18:00 Consent obtained: Yes Central line pre-insertion: Sterile PPE donned, Chloraprep applied Central line lumen type: Triple Anesthetic type: 2% Lidocaine mL's of anesthesia: 5 Ultrasound guided: No Line secured with sutures: Yes Central line post-insertion: Blood return from lumens, Biopatch applied, Sutured, Sterile dressing applied Complications: Yes - Inadvertent spiking of the femoral artery with development of hematoma
--- NOTE | 2020-04-17 20:39 | NEURO WORKBENCH EEG REPORT ---
EEG Report Patient: Luis Alberto Madison ID: [id number] Referring Doctor: Reid Ramírez DOS: 04/17/2020 Medications: rocephin, keppra History This is a 54 year old male with a history of cirrhosis, intubated and no sedation. Temperature 37.4. This EEG was requested for AMS. EEG Interpretation This EEG was recorded with the patient intubated. The EEG is characterized by a disorganized and attenuated background without a noted posterior dominant rhythm. There was a subtle asymmetry with more attenuation over the right. There were no noted significant changes with passive eye opening/closing. However, there was artifact during the recording, including electrode pops, that impaired interpretation. The remainder of the background was characterized by a combination of primarily delta activity with some low amplitude beta frequencies. There were delta waves with some sharply contoured though blunted in morphology in the posterior regions, most prominent in the left posterior regions. These were semi-periodic during the recording. Photic stimulation resulted in no posterior driving response with an anterior artifact. There were no definitive epileptiform abnormalities. The EKG showed periods of an irregular rhythm. EEG Classification * Periodic discharges, lateralized, posterior, left>right * Asymmetry, attenuation right * Generalized background slowing * Disorganized * Attenuated * EKG irregular rhythm * Technically poor study EEG Impression This EEG is abnormal. It is consistent with diffuse cerebral dysfunction but given the asymmetry, consideration to focal lesions should be considered (e.g. metabolic, liver dysfunction, infectious, vascular etc.). Correlation with neuroimaging would be of interest. The EKG showed an irregular rhythm that may require further investigation. INTERPRETING NEUROLOGIST: Gabrielle Pan MD, FRCPC Board Certified in Neurology, with special qualification in Child Neurology, and in Clinical Neurophysiology [facility]
[2020-04-18] MEDS: LACTULOSE SYRUP 20 GM/30 ML UDCUP PO SCH ×4 (02:46→21:15)
[2020-04-18 04:16] LABS: ALBUMIN 2.8 g/dL (3.5-5.0); ALKALINE PHOSPHATASE 76 U/L (38-126); ANION GAP 13 (5-19); ASPARTATE AMINO TRANSFERASE 34 U/L (17-59); BILIRUBIN,DIRECT 0.7 mg/dL (0.0-0.4); BLOOD UREA NITROGEN 82 mg/dL (7-20); CALCIUM 8.2 mg/dL (8.4-10.2); CARBON DIOXIDE 25 mmol/L (22-30); CHLORIDE 99 mmol/L (98-107); GLUCOSE 161 mg/dL (75-110); PHOSPHORUS 4.2 mg/dL (2.5-4.5); TOTAL PROTEIN 5.3 g/dL (6.3-8.2)
[2020-04-18 04:25] LABS: POTASSIUM 3.3 mmol/L (3.6-5.0)
[2020-04-18 05:18] LABS: ARTERIAL BLOOD H2CO3 0.72 mmol/L (1.05-1.35); ARTERIAL BLOOD HCO3 25.5 mmol/L (20-24); ARTERIAL BLOOD O2 SATURATION 99.7 % (94-98); ARTERIAL BLOOD PCO2 23.8 mmHg (35-45); ARTERIAL BLOOD PO2 220.8 mmHg (80-100); ARTERIAL BLOOD TOTAL CO2 26.2 mmol/L (23-27)
[2020-04-18 05:19] LABS: ARTERIAL BLOOD FIO2 40%
[2020-04-18 05:20] LABS: ARTERIAL BLOOD PH 7.65 (7.35-7.45)
[2020-04-18] MEDS ORDERED: EPOETIN ALFA-EPBX 20,000 UNIT in SYRINGE, DISPOSABLE, 1 EACH IV PRN (07:40)
[2020-04-18] MEDS ORDERED: HEPARIN SOD (PORCINE) 1,000 UNIT/ML 10 ML VIAL IV PRN (07:40)
[2020-04-18] MEDS ORDERED: MIDAZOLAM HCL 50 MG/100 ML RTUINJ ONE (08:49)
[2020-04-18] MEDS: MIDAZOLAM HCL 50 MG/100 ML RTUINJ IV PRN ×2 (08:54→16:20)
--- NOTE | 2020-04-18 09:51 | PDOC CRITICAL CARE PROG REPORT ---
General Date:: 04/18/20 ICU Day:: 3 Ventilator Day:: 3 Hospital Day:: 3 Resuscitation Status: Full Code Events in the past 12 to 24 Hours:: The patient remains in acoma on the ventialtor. He may have had a series of short seizure following admissin. Getting EEG now Loaded with keppra. [place] guarded 04/18 The patient remains on the ventilator. has been hemodynamically stable. His pH is elevated his AM. it appears that we overshot correcting his ph with the bicarb drip since curtailed. A new dialysis catheter was placed last night. the patient is profoundly oligusic. He will get dialyzed today. He is not arousable still despite being off sedation. Ammonia level has come way down to just over 100. Reason for ICU Addmission:: Unconsciousness, acute Respiraory Failure, Decompensated cirrhosis Physical Exam Vital Signs: Temp Pulse Resp BP Pulse Ox 98.1 F 87 15 117/59 L 100 04/18/20 08:00 04/18/20 08:00 04/18/20 08:00 04/18/20 08:00 04/18/20 08:00 Intake & Output 04/17/20 04/18/20 04/19/20 06:59 06:59 06:59 Intake Total 2150 2250 Output Total 90 645 0 Balance 2060 1605 0 Weight 84.6 kg 91.9 kg Weight/Height Weight 91.9 kg Height 5 ft 9 in Laboratory/Radiographs Laboratory Results: 04/17/20 07:02 04/17/20 04/18/20 04/18/20 11:12 03:34 03:34 Carbonic Acid HCO3/H2CO3 Ratio ABG pH ABG pCO2 ABG pO2 ABG HCO3 ABG O2 Saturation ABG Base Excess FiO2 Sodium 137.3 Potassium 3.3 L D Chloride 99 Carbon Dioxide 25 Anion Gap 13 BUN 82 H Creatinine 4.33 H Est GFR ( Amer) 17 L Glucose 161 H Lactic Acid 3.0 H Calcium 8.2 L Phosphorus 4.2 Magnesium 3.2 H Total Bilirubin 3.0 H AST 34 Alkaline Phosphatase 76 Ammonia 115.7 H Total Protein 5.3 L Albumin 2.8 L 04/18/20 04:45 Carbonic Acid 0.72 L HCO3/H2CO3 Ratio 35:1 ABG pH 7.65 H* ABG pCO2 23.8 L ABG pO2 220.8 H ABG HCO3 25.5 H ABG O2 Saturation 99.7 H ABG Base Excess 5.0 FiO2 40% Sodium Potassium Chloride Carbon Dioxide Anion Gap BUN Creatinine Est GFR ( Amer) Glucose Lactic Acid Calcium Phosphorus Magnesium Total Bilirubin AST Alkaline Phosphatase Ammonia Total Protein Albumin 04/16/20 12:23 CK-MB (CK-2) 3.84 Troponin I 0.046 NT-Pro-B Natriuret Pep 772 H Impressions: Head CT 04/16/20 12:28 IMPRESSION: NORMAL BRAIN CT WITHOUT CONTRAST. EVIDENCE OF ACUTE STROKE: NO. Cervical Spine CT 04/16/20 12:59 IMPRESSION: MILD DEGENERATIVE DISC DISEASE. NO ACUTE FINDINGS IN THE CERVICAL SPINE. Renal Ultrasound 04/17/20 00:00 IMPRESSION: NORMAL RENAL AND BLADDER ULTRASOUND. Assessment and Plan - Diagnosis (1) Acute and subacute hepatic failure with coma Is this a current diagnosis for this admission?: Yes Plan: The patient has a long history of alcohol related cirrhosis. he presented with suddent alteration of mental status 2 days ago. His ammonia level was very elevated at that time. (2) Altered mental status Qualifiers: Altered mental status type: coma Coma depth: [place]lyss[place] coma 3-8 Coma brett ing: in the field (EMT or ambulance) Qualified Code(s): R40.2431 - [place] coma scale score 3-8, in the field [EMT or ambulance] Is this a current diagnosis for this admission?: Yes Plan: Patietr comartose. Bucio s been placed on ventialtor. He is on Rifaximinand lactulose for his elevated ammonia level. There may be an element of uremia as well. EEG being done presently CT head was unremarkable. 04/18 his EEG did not show obvious seizure activity. There is generalized slowing consistent with hepatic encephalopathy. he patient remains off sedation. (3) Elevated lactic acid level Is this a current diagnosis for this admission?: Yes Plan: Resolved. (4) Hyperammonemia Is this a current diagnosis for this admission?: Yes (5) Hyperkalemia Is this a current diagnosis for this admission?: Yes Plan: resolved. (6) Acute kidney injury Is this a current diagnosis for this admission?: Yes Plan: Creatinineis up to close to 5. Urine output is very poor. Will ask Nephrology to see thepatient Check urine Na+. 04/18 The poatient remins profoundly oliguric. His last creat is 4.333. The patient may have entered into a type 1 hepatorenal picture. He ois to get dialysis today. Renal Us showed normal kidney echogenicity. (7) Infection Is this a current diagnosis for this admission?: Yes Plan: No definite signs of infx. CXR did show an overt pneumonia. the patient has been afebbrile. Initla UA was unremarkable for infx. Has been afebbbrile. Inital blood culture negative. The patienthasaa a history of ascites but no major evidence of ascites at this tie. ' WBC remains elevated , however. Critical Time Critical Time (minutes): 35 Level of Care: ICU -: 1. The care of a critical patient is a dynamic process. This note is a major account representative synopsis but static in nature. The timeframe for treatments given in order is not necessarily the actual time these treatments may have been done. 2. This patient requires critical care secondary to ongoing requirements for therapy not offered or safe outside the critical care environment. Transfer to a lower level of care will result in altered life or limb morbidity and mortality. 3. Multidisciplinary rounds completed. 4. ABCDE bundle addressed.
[2020-04-18 10:16] LABS: ANION GAP 11 (5-19); BLOOD UREA NITROGEN 83 mg/dL (7-20); CARBON DIOXIDE 25 mmol/L (22-30); CHLORIDE 99 mmol/L (98-107); GLUCOSE 119 mg/dL (75-110); POTASSIUM 3.3 mmol/L (3.6-5.0)
[2020-04-18] MEDS ORDERED: PANTOPRAZOLE SODIUM 40 MG VIAL IV ONE ×2 (10:21→13:26)
[2020-04-18 10:40] LABS: ARTERIAL BLOOD BASE EXCESS 4.3 mmol/L; ARTERIAL BLOOD H2CO3 0.74 mmol/L (1.05-1.35); ARTERIAL BLOOD HCO3 25.3 mmol/L (20-24); ARTERIAL BLOOD O2 SATURATION 99.7 % (94-98); ARTERIAL BLOOD PCO2 24.6 mmHg (35-45); ARTERIAL BLOOD TOTAL CO2 26.1 mmol/L (23-27)
[2020-04-18 10:41] LABS: ARTERIAL BLOOD FIO2 40%
[2020-04-18 10:42] LABS: ARTERIAL BLOOD PH 7.63 (7.35-7.45)
[2020-04-18] MEDS ORDERED: TUBERCULIN,PURIF.PROT.DERIV. 5 TU/0.1 ML TEST 1 ML VIAL ID ONE (11:00)
[2020-04-18] MEDS: NORMAL SALINE 1000 ML 1,000 ML IV PRN (11:54)
--- NOTE | 2020-04-18 12:20 | RADIOLOGY REPORT (SQ) ---
EXAM DESCRIPTION: CHEST SINGLE VIEW IMAGES COMPLETED DATE/TIME: 04/18/2020 9:38 am REASON FOR STUDY: acute resp. failure COMPARISON: 04/16/2020 EXAM PARAMETERS: NUMBER OF VIEWS: One view. TECHNIQUE: Single frontal radiographic view of the chest acquired. RADIATION DOSE: NA LIMITATIONS: None. FINDINGS: LUNGS AND PLEURA: No opacities, masses or pneumothorax. No pleural effusion. MEDIASTINUM AND HILAR STRUCTURES: No masses. Contour normal. HEART AND VASCULAR STRUCTURES: Heart normal in size. Normal vasculature. BONES: No acute findings. HARDWARE: Endotracheal tube has its tip 4 cm above the kenzie. NG tube extends to the stomach. OTHER: No other significant finding. IMPRESSION: NO ACUTE RADIOGRAPHIC FINDING IN THE CHEST. TECHNICAL DOCUMENTATION: JOB ID: [id number] 2010 [employer]- All Rights Reserved Reading location - IP/workstation name: [email or web address]
[2020-04-18] MEDS: LEVETIRACETAM 1000 MG/NACL-ISO 1,000 MG/100 ML RTUPB IV SCH ×2 (13:21→21:14)
[2020-04-18] MEDS: CEFTRIAXONE 2 GM/D5W RTU 2 GM/50 ML RTUPB IV SCH (13:21)
[2020-04-18] MEDS: RIFAXIMIN 550 MG TABLET PO SCH ×2 (13:21→21:15)
[2020-04-18] MEDS: POTASSIUM CHLORIDE 20 MEQ/50 ML RTU IV SCH ×2 (13:22→15:45)
[2020-04-18] MEDS: HEPARIN SOD (PORCINE) 5,000 UNIT/ML 1 ML VIAL SUBCUT SCH ×2 (13:28→21:16)
[2020-04-18] MEDS: POTASSI CL 20 MEQ/50 ML RIDER 20 MEQ/50 ML RTUPB IV SCH ×2 (13:43→13:44)
--- NOTE | 2020-04-18 15:23 | PDOC PROGRESS REPORT ---
Subjective Date:: 04/18/20 Reason For Visit: Patient seen in the ICU today on dialysis. He remains intubated and sedated. Vital signs are stable. He has made about 600 cc of urine overnight. However his renal numbers are still bad. Dialysis is being undertaken through a femoral temporary catheter. Labs and medications were reviewed that shows improving ammonia levels as well as his bicarb. White count still staying elevated. Dialysis orders were reviewed with the treating dialysis nurse. Physical Exam Vital Signs: Temp Pulse Resp BP Pulse Ox 95.9 F L 81 16 94/49 L 100 04/18/20 14:00 04/18/20 14:00 04/18/20 14:00 04/18/20 14:00 04/18/20 14:00 Intake & Output 04/17/20 04/18/20 04/19/20 06:59 06:59 06:59 Intake Total 2150 2250 927 Output Total 90 645 100 Balance 2060 1605 827 Weight 84.6 kg 91.9 kg General appearance: PRESENT: disheveled Exam: Remains intubated and sedated. Respiratory exam: ABSENT: crackles Cardiovascular exam: PRESENT: +S1, +S2 GI/Abdominal exam: PRESENT: ascites, distended, normal bowel sounds, soft. ABSENT: organomegaly, tenderness Extremities exam: ABSENT: pedal edema Results Laboratory Results: 04/17/20 07:02 04/18/20 09:00 04/18/20 04/18/20 04/18/20 03:34 03:34 04:45 Carbonic Acid 0.72 L HCO3/H2CO3 Ratio 35:1 ABG pH 7.65 H* ABG pCO2 23.8 L ABG pO2 220.8 H ABG HCO3 25.5 H ABG O2 Saturation 99.7 H ABG Base Excess 5.0 FiO2 40% Sodium 137.3 Potassium 3.3 L D Chloride 99 Carbon Dioxide 25 Anion Gap 13 BUN 82 H Creatinine 4.33 H Est GFR ( Amer) 17 L Glucose 161 H Calcium 8.2 L Phosphorus 4.2 Magnesium 3.2 H Total Bilirubin 3.0 H AST 34 Alkaline Phosphatase 76 Ammonia 115.7 H Total Protein 5.3 L Albumin 2.8 L 04/18/20 04/18/20 09:00 09:58 Carbonic Acid 0.74 L HCO3/H2CO3 Ratio 34:1 ABG pH 7.63 H* ABG pCO2 24.6 L ABG pO2 225.0 H ABG HCO3 25.3 H ABG O2 Saturation 99.7 H ABG Base Excess 4.3 FiO2 40% Sodium 135.3 L Potassium 3.3 L Chloride 99 Carbon Dioxide 25 Anion Gap 11 BUN 83 H Creatinine 4.17 H Est GFR ( Amer) 18 L Glucose 119 H Calcium 8.0 L Phosphorus Magnesium Total Bilirubin AST Alkaline Phosphatase Ammonia Total Protein Albumin 04/16/20 12:23 CK-MB (CK-2) 3.84 Troponin I 0.046 NT-Pro-B Natriuret Pep 772 H Impressions: Head CT 04/16/20 12:28 IMPRESSION: NORMAL BRAIN CT WITHOUT CONTRAST. EVIDENCE OF ACUTE STROKE: NO. Cervical Spine CT 04/16/20 12:59 IMPRESSION: MILD DEGENERATIVE DISC DISEASE. NO ACUTE FINDINGS IN THE CERVICAL SPINE. Renal Ultrasound 04/17/20 00:00 IMPRESSION: NORMAL RENAL AND BLADDER ULTRASOUND. Chest X-Ray 04/18/20 00:00 IMPRESSION: NO ACUTE RADIOGRAPHIC FINDING IN THE CHEST. Assessment & Plan - Diagnosis (1) Acute kidney injury Is this a current diagnosis for this admission?: Yes Plan: Patient currently being seen while undergoing dialysis which is being supervised. Hemodynamically stable. Metabolic acidosis is markedly improved with the bicarbonate drip and should remain stable following dialysis as well. Unfortunately fluid extraction might be difficult as his blood pressure is was seemingly dropping while on dialysis. Dialysis orders were reviewed with the [facility] dialysis nurse.. (2) Alcoholic cirrhosis of liver with ascites Plan: With obvious evidences of portal hypertension. Unsure of his esophageal varices. Unsure if he is a candidate for liver transplant. Overall poor prognosis. (3) Acute and subacute hepatic failure with coma Is this a current diagnosis for this admission?: Yes Plan: As evidenced by his severe ammonia level of 1000. He is on appropriate treatments and his latest ammonia level today was 116. (4) Altered mental status Qualifiers: Altered mental status type: coma Coma depth: [place] coma 3-8 Coma timing: in the field (EMT or ambulance) Qualified Code(s): R40.2431 - [place] coma scale score 3-8, in the field [EMT or ambulance] Is this a current diagnosis for this admission?: Yes Plan: Secondary to hepatic encephalopathy with additional insults from AMANDA/Sepsis. (5) Elevated lactic acid level Is this a current diagnosis for this admission?: Yes Plan: Resolved. (6) Hyperammonemia Is this a current diagnosis for this admission?: Yes Plan: Markedly improved. (7) Hyperkalemia Is this a current diagnosis for this admission?: Yes Plan: Stable.
[2020-04-18 17:50] LABS: ARTERIAL BLOOD BASE EXCESS 5.5 mmol/L; ARTERIAL BLOOD H2CO3 0.76 mmol/L (1.05-1.35); ARTERIAL BLOOD HCO3 26.5 mmol/L (20-24); ARTERIAL BLOOD O2 SATURATION 99.6 % (94-98); ARTERIAL BLOOD PCO2 25.4 mmHg (35-45); ARTERIAL BLOOD PO2 206.7 mmHg (80-100); ARTERIAL BLOOD TOTAL CO2 27.3 mmol/L (23-27)
[2020-04-18 17:51] LABS: ARTERIAL BLOOD FIO2 40%
[2020-04-18 17:53] LABS: ARTERIAL BLOOD PH 7.64 (7.35-7.45)
[2020-04-18 17:56] LABS: HEMATOCRIT 20.6 % (37.9-51.0); MEAN CORPUSCULAR HEMOGLOBIN 34.6 pg (27.0-33.4); MEAN CORPUSCULAR HGB CONC 34.4 g/dL (32.0-36.0); MEAN CORPUSCULAR VOLUME 101 fl (80-97); RED BLOOD COUNT 2.05 10^6/uL (4.35-5.55); RED CELL DISTRIBUTION WIDTH 15.6 % (11.5-14.0); WHITE BLOOD COUNT 7.3 10^3/uL (4.0-10.5)
[2020-04-18] MEDS ORDERED: NORMAL SALINE 500 ML with ROCURONIUM BROMIDE 500 MG IV PRN ×2 (18:02)
[2020-04-18 18:10] LABS: ANION GAP 8 (5-19); CALCIUM 7.8 mg/dL (8.4-10.2); CARBON DIOXIDE 28 mmol/L (22-30); CHLORIDE 99 mmol/L (98-107); GLUCOSE 124 mg/dL (75-110); POTASSIUM 3.9 mmol/L (3.6-5.0)
[2020-04-18 18:13] LABS: BLOOD UREA NITROGEN 55 mg/dL (7-20)
[2020-04-18 18:26] LABS: HEMOGLOBIN 7.1 g/dL (13.5-17.0); PLATELET COUNT 62 10^3/uL (150-450)
[2020-04-19] MEDS: MIDAZOLAM HCL 50 MG/100 ML RTUINJ IV PRN ×3 (00:03→16:18)
[2020-04-19 04:24] LABS: HEMATOCRIT 21.4 % (37.9-51.0); MEAN CORPUSCULAR HGB CONC 34.3 g/dL (32.0-36.0); MEAN CORPUSCULAR VOLUME 99 fl (80-97); RED BLOOD COUNT 2.15 10^6/uL (4.35-5.55); RED CELL DISTRIBUTION WIDTH 15.8 % (11.5-14.0); WHITE BLOOD COUNT 6.8 10^3/uL (4.0-10.5)
[2020-04-19 04:36] LABS: ANION GAP 8 (5-19); BLOOD UREA NITROGEN 60 mg/dL (7-20); CALCIUM 8.1 mg/dL (8.4-10.2); CARBON DIOXIDE 28 mmol/L (22-30); CHLORIDE 102 mmol/L (98-107); GLUCOSE 122 mg/dL (75-110); POTASSIUM 3.9 mmol/L (3.6-5.0)
[2020-04-19] MEDS: LACTULOSE SYRUP 20 GM/30 ML UDCUP PO SCH ×4 (04:58→21:35)
[2020-04-19 05:04] LABS: HEMOGLOBIN 7.3 g/dL (13.5-17.0); PLATELET COUNT 64 10^3/uL (150-450)
[2020-04-19 05:08] LABS: ARTERIAL BLOOD BASE EXCESS 4.1 mmol/L; ARTERIAL BLOOD HCO3 26.4 mmol/L (20-24); ARTERIAL BLOOD O2 SATURATION 94.7 % (94-98); ARTERIAL BLOOD PCO2 29.8 mmHg (35-45); ARTERIAL BLOOD PH 7.57 (7.35-7.45); ARTERIAL BLOOD PO2 61.5 mmHg (80-100); ARTERIAL BLOOD TOTAL CO2 27.3 mmol/L (23-27)
[2020-04-19 05:09] LABS: ARTERIAL BLOOD FIO2 40%
[2020-04-19] MEDS: HEPARIN SOD (PORCINE) 5,000 UNIT/ML 1 ML VIAL SUBCUT SCH ×3 (06:43→21:34)
[2020-04-19 08:37] LABS: HEPATITS B SURFACE ANTIGEN Negative (Negative)
[2020-04-19 09:11] LABS: HEPATITIS B CORE AB TOT Negative (Negative)
[2020-04-19] MEDS: LEVETIRACETAM 1000 MG/NACL-ISO 1,000 MG/100 ML RTUPB IV SCH ×2 (10:03→21:36)
[2020-04-19] MEDS: CEFTRIAXONE 2 GM/D5W RTU 2 GM/50 ML RTUPB IV SCH (10:03)
[2020-04-19] MEDS: RIFAXIMIN 550 MG TABLET PO SCH ×2 (10:04→21:36)
[2020-04-19 10:48] LABS: ARTERIAL BLOOD H2CO3 0.88 mmol/L (1.05-1.35); ARTERIAL BLOOD HCO3 26.2 mmol/L (20-24); ARTERIAL BLOOD O2 SATURATION 99.6 % (94-98); ARTERIAL BLOOD PCO2 29.4 mmHg (35-45); ARTERIAL BLOOD PH 7.57 (7.35-7.45); ARTERIAL BLOOD PO2 213.5 mmHg (80-100); ARTERIAL BLOOD TOTAL CO2 27.1 mmol/L (23-27)
[2020-04-19 10:52] LABS: ARTERIAL BLOOD FIO2 40%
[2020-04-19] MEDS ORDERED: EPOETIN ALFA-EPBX 20,000 UNIT in SYRINGE, DISPOSABLE, 1 EACH IV PRN (11:35)
[2020-04-19] MEDS ORDERED: HEPARIN SOD (PORCINE) 1,000 UNIT/ML 10 ML VIAL IV PRN (11:35)
[2020-04-19 11:45] LABS: ANION GAP 11 (5-19); BLOOD UREA NITROGEN 65 mg/dL (7-20); CALCIUM 8.3 mg/dL (8.4-10.2); CARBON DIOXIDE 25 mmol/L (22-30); CHLORIDE 102 mmol/L (98-107); GLUCOSE 127 mg/dL (75-110); POTASSIUM 3.8 mmol/L (3.6-5.0)
--- NOTE | 2020-04-19 12:14 | PDOC CRITICAL CARE PROG REPORT ---
General Date:: 04/19/20 ICU Day:: 4 Ventilator Day:: 4 Hospital Day:: 4 Resuscitation Status: Full Code Events in the past 12 to 24 Hours:: The patient remains in acoma on the ventialtor. He may have had a series of short seizure following admissin. Getting EEG now Loaded with keppra. [place] guarded 04/18 The patient remains on the ventilator. has been hemodynamically stable. His pH is elevated his AM. it appears that we overshot correcting his ph with the bicarb drip since curtailed. A new dialysis catheter was placed last night. the patient is profoundly oligusic. He will get dialyzed today. He is not arousable still despite being off sedation. Ammonia level has come way down to just over 100. 04/19 The patient remains on the ventialtor. Wea re weaning off Versed. His PH is slowing coming towards normal; The patient has show no signof significant arousal to date. He has started tomake some uirne. he made about 550 in the past 24 hours. Will likely run short dialysis today as there is dialysis on the weekend. Reason for ICU Addmission:: Unconsciousness, acute Respiraory Failure, Decompensated cirrhosis Physical Exam Vital Signs: Temp Pulse Resp BP Pulse Ox 97.0 F 79 16 106/54 L 100 04/19/20 10:17 04/19/20 10:00 04/19/20 10:17 04/19/20 10:17 04/19/20 10:17 Intake & Output 04/18/20 04/19/20 04/20/20 06:59 06:59 06:59 Intake Total 2250 2796 Output Total 645 520 70 Balance 1605 2276 -70 Weight 91.9 kg 93 kg Weight/Height Weight 93 kg Height 5 ft 9 in Laboratory/Radiographs Laboratory Results: 04/19/20 03:49 04/19/20 10:42 04/18/20 04/18/20 04/18/20 17:18 17:18 17:19 WBC 7.3 RBC 2.05 L Hgb 7.1 L D Hct 20.6 L MCV 101 H MCH 34.6 H MCHC 34.4 RDW 15.6 H Plt Count 62 L Carbonic Acid 0.76 L HCO3/H2CO3 Ratio 34:1 ABG pH 7.64 H* ABG pCO2 25.4 L ABG pO2 206.7 H ABG HCO3 26.5 H ABG O2 Saturation 99.6 H ABG Base Excess 5.5 FiO2 40% Sodium 135.3 L Potassium 3.9 Chloride 99 Carbon Dioxide 28 Anion Gap 8 BUN 55 H D Creatinine 2.85 H Est GFR ( Amer) 28 L Glucose 124 H Calcium 7.8 L 04/19/20 04/19/20 04/19/20 03:25 03:49 03:49 WBC 6.8 RBC 2.15 L Hgb 7.3 L Hct 21.4 L MCV 99 H MCH 34.0 H MCHC 34.3 RDW 15.8 H Plt Count 64 L Carbonic Acid Cancelled HCO3/H2CO3 Ratio Cancelled ABG pH Cancelled ABG pCO2 Cancelled ABG pO2 Cancelled ABG HCO3 Cancelled ABG O2 Saturation Cancelled ABG Base Excess Cancelled FiO2 Cancelled Sodium 137.5 Potassium 3.9 Chloride 102 Carbon Dioxide 28 Anion Gap 8 BUN 60 H Creatinine 3.06 H Est GFR ( Amer) 26 L Glucose 122 H Calcium 8.1 L 04/19/20 04/19/20 04/19/20 04:15 10:41 10:42 WBC RBC Hgb Hct MCV MCH MCHC RDW Plt Count Carbonic Acid 0.90 L 0.88 L HCO3/H2CO3 Ratio 29:1 29:1 ABG pH 7.57 H 7.57 H ABG pCO2 29.8 L 29.4 L ABG pO2 61.5 L 213.5 H ABG HCO3 26.4 H 26.2 H ABG O2 Saturation 94.7 99.6 H ABG Base Excess 4.1 4.0 FiO2 40% 40% Sodium 137.8 Potassium 3.8 Chloride 102 Carbon Dioxide 25 Anion Gap 11 BUN 65 H Creatinine 2.96 H Est GFR ( Amer) 27 L Glucose 127 H Calcium 8.3 L 04/16/20 12:23 CK-MB (CK-2) 3.84 Troponin I 0.046 NT-Pro-B Natriuret Pep 772 H Impressions: Head CT 04/16/20 12:28 IMPRESSION: NORMAL BRAIN CT WITHOUT CONTRAST. EVIDENCE OF ACUTE STROKE: NO. Cervical Spine CT 04/16/20 12:59 IMPRESSION: MILD DEGENERATIVE DISC DISEASE. NO ACUTE FINDINGS IN THE CERVICAL SPINE. Renal Ultrasound 04/17/20 00:00 IMPRESSION: NORMAL RENAL AND BLADDER ULTRASOUND. Chest X-Ray 04/18/20 00:00 IMPRESSION: NO ACUTE RADIOGRAPHIC FINDING IN THE CHEST. Assessment and Plan - Diagnosis (1) Acute and subacute hepatic failure with coma Is this a current diagnosis for this admission?: Yes (2) Altered mental status Qualifiers: Altered mental status type: coma Coma depth: [place] coma 3-8 Coma timing: in the field (EMT or ambulance) Qualified Code(s): R40.2431 - [place] coma scale score 3-8, in the field [EMT or ambulance] Is this a current diagnosis for this admission?: Yes Plan: Patietr comartose. Bucio s been placed on ventialtor. He is on Rifaximinand lactulose for his elevated ammonia level. There may be an element of uremia as well. EEG being done presently CT head was unremarkable. 04/18 his EEG did not show obvious seizure activity. There is generalized slowing consistent with hepatic encephalopathy. he patient remains off sedation. Little change in neuro status. We are weaning off verse. Ammonia ;level was 115 yesterday. No spontaneous movement or eye opening. (3) Elevated lactic acid level Is this a current diagnosis for this admission?: Yes Plan: Resolved. (4) Hyperammonemia Is this a current diagnosis for this admission?: Yes (5) Hyperkalemia Is this a current diagnosis for this admission?: Yes Plan: resolved. (6) Acute kidney injury Is this a current diagnosis for this admission?: Yes Plan: Creatinineis up to close to 5. Urine output is very poor. Will ask Nephrology to see thepatient Check urine Na+. 04/18 The poatient remins profoundly oliguric. His last creat is 4.333. The patient may have entered into a type 1 hepatorenal picture. He ois to get dialysis today. Renal Us showed normal kidney echogenicity. 04/19 The patient may be showing some sign of renal recovery. Put out 500ccc of urine in the past 24 hours. Dialysis catheter is int eh right groin. (7) Infection Is this a current diagnosis for this admission?: Yes Plan: No definite signs of infx. CXR did show an overt pneumonia. the patient has been afebbrile. Initla UA was unremarkable for infx. Has been afebbbrile. Inital blood culture negative. The patient has a a history of ascites but no major evidence of ascites at this tie. ' WBC remains elevated , however. 04/19 His inital blood cultures remain negative. he remains on Ceftriaxone. (8) Anemia Is this a current diagnosis for this admission?: Yes Plan: Stool guiaic and NGT aspirate were guaic negative. His Hb dropped 2 points from 04/17 to 04/18. Platelets haave dropped from 144 to 64 but stabilzed in the low 60s. will monitor Critical Time Critical Time (minutes): 40 Level of Care: ICU -: 1. The care of a critical patient is a dynamic process. This note is a account services representative synopsis but static in nature. The timeframe for treatments given in order is not necessarily the actual time these treatments may have been done. 2. This patient requires critical care secondary to ongoing requirements for therapy not offered or safe outside the critical care environment. Transfer to a lower level of care will result in altered life or limb morbidity and mortality. 3. Multidisciplinary rounds completed. 4. ABCDE bundle addressed.
[2020-04-19] MEDS ORDERED: ALTEPLASE INJ 2 MG VIAL (CATH CLEARANCE) IV ONE (13:19)
--- NOTE | 2020-04-19 14:15 | PDOC PROGRESS REPORT ---
Subjective Date:: 04/19/20 Reason For Visit: Patient seen in the ICU on dialysis. He still remains intubated and sedated. Blood pressure is rather tenuous and therefore hardly much of fluid removal will happen. Discussed this with book binder. Labs and medications were reviewed. Dialysis orders were reviewed with the treating dialysis nurse. He has made about 500 cc of urine which is encouraging. Physical Exam Vital Signs: Temp Pulse Resp BP Pulse Ox 96.4 F L 78 18 107/57 L 100 04/19/20 12:00 04/19/20 12:00 04/19/20 12:00 04/19/20 12:00 04/19/20 12:00 Intake & Output 04/18/20 04/19/20 04/20/20 06:59 06:59 06:59 Intake Total 2250 2796 229 Output Total 645 520 135 Balance 1605 2276 94 Weight 91.9 kg 93 kg General appearance: PRESENT: disheveled Exam: Remains intubated and sedated. Respiratory exam: PRESENT: clear to auscultation mayela. ABSENT: crackles Cardiovascular exam: PRESENT: +S1, +S2 GI/Abdominal exam: PRESENT: ascites, distended, normal bowel sounds, soft. AB SENT: organomegaly, tenderness Extremities exam: ABSENT: pedal edema Results Laboratory Results: 04/19/20 03:49 04/19/20 10:42 04/18/20 04/18/20 04/18/20 17:18 17:18 17:19 WBC 7.3 RBC 2.05 L Hgb 7.1 L D Hct 20.6 L MCV 101 H MCH 34.6 H MCHC 34.4 RDW 15.6 H Plt Count 62 L Carbonic Acid 0.76 L HCO3/H2CO3 Ratio 34:1 ABG pH 7.64 H* ABG pCO2 25.4 L ABG pO2 206.7 H ABG HCO3 26.5 H ABG O2 Saturation 99.6 H ABG Base Excess 5.5 FiO2 40% Sodium 135.3 L Potassium 3.9 Chloride 99 Carbon Dioxide 28 Anion Gap 8 BUN 55 H D Creatinine 2.85 H Est GFR ( Amer) 28 L Glucose 124 H Calcium 7.8 L 04/19/20 04/19/20 04/19/20 03:25 03:49 03:49 WBC 6.8 RBC 2.15 L Hgb 7.3 L Hct 21.4 L MCV 99 H MCH 34.0 H MCHC 34.3 RDW 15.8 H Plt Count 64 L Carbonic Acid Cancelled HCO3/H2CO3 Ratio Cancelled ABG pH Cancelled ABG pCO2 Cancelled ABG pO2 Cancelled ABG HCO3 Cancelled ABG O2 Saturation Cancelled ABG Base Excess Cancelled FiO2 Cancelled Sodium 137.5 Potassium 3.9 Chloride 102 Carbon Dioxide 28 Anion Gap 8 BUN 60 H Creatinine 3.06 H Est GFR ( Amer) 26 L Glucose 122 H Calcium 8.1 L 04/19/20 04/19/20 04/19/20 04:15 10:41 10:42 WBC RBC Hgb Hct MCV MCH MCHC RDW Plt Count Carbonic Acid 0.90 L 0.88 L HCO3/H2CO3 Ratio 29:1 29:1 ABG pH 7.57 H 7.57 H ABG pCO2 29.8 L 29.4 L ABG pO2 61.5 L 213.5 H ABG HCO3 26.4 H 26.2 H ABG O2 Saturation 94.7 99.6 H ABG Base Excess 4.1 4.0 FiO2 40% 40% Sodium 137.8 Potassium 3.8 Chloride 102 Carbon Dioxide 25 Anion Gap 11 BUN 65 H Creatinine 2.96 H Est GFR ( Amer) 27 L Glucose 127 H Calcium 8.3 L 04/16/20 12:23 CK-MB (CK-2) 3.84 Troponin I 0.046 NT-Pro-B Natriuret Pep 772 H Impressions: Head CT 04/16/20 12:28 IMPRESSION: NORMAL BRAIN CT WITHOUT CONTRAST. EVIDENCE OF ACUTE STROKE: NO. Cervical Spine CT 04/16/20 12:59 IMPRESSION: MILD DEGENERATIVE DISC DISEASE. NO ACUTE FINDINGS IN THE CERVICAL SPINE. Renal Ultrasound 04/17/20 00:00 IMPRESSION: NORMAL RENAL AND BLADDER ULTRASOUND. Chest X-Ray 04/18/20 00:00 IMPRESSION: NO ACUTE RADIOGRAPHIC FINDING IN THE CHEST. Assessment & Plan - Diagnosis (1) Acute kidney injury Is this a current diagnosis for this admission?: Yes Plan: Patient currently being seen while undergoing dialysis which is being supervised. Has made approximately 500 cc of urine which is encouraging. Hemodynamically stable. Metabolic acidosis is resolved. Unfortunately fluid extraction might be difficult as his blood pressure is was seemingly dropping while on dialysis. Dialysis orders were reviewed with the treating dialysis nurse.. (2) Alcoholic cirrhosis of liver with ascites Plan: With obvious evidences of portal hypertension. Unsure of his esophageal varices. Unsure if he is a candidate for liver transplant. Overall poor prognosis. (3) Acute and subacute hepatic failure with coma Is this a current diagnosis for this admission?: Yes Plan: As evidenced by his initial severe ammonia level of 1000. He is on appropriate treatments and his latest ammonia level today was 116. (4) Altered mental status Qualifiers: Altered mental status type: coma Coma depth: [place] coma 3-8 Coma timing: in the field (EMT or ambulance) Qualified Code(s): R40.2431 - [place] coma scale score 3-8, in the field [EMT or ambulance] Is this a current diagnosis for this admission?: Yes Plan: Secondary to hepatic encephalopathy with additional insults from AMANDA/Sepsis. (5) Hyperammonemia Is this a current diagnosis for this admission?: Yes Plan: Markedly improved. (6) Hyperkalemia Is this a current diagnosis for this admission?: Yes Plan: Stable.
[2020-04-19 18:11] LABS: ARTERIAL BLOOD BASE EXCESS 2.6 mmol/L; ARTERIAL BLOOD FIO2 35%; ARTERIAL BLOOD H2CO3 0.89 mmol/L (1.05-1.35); ARTERIAL BLOOD O2 SATURATION 99.4 % (94-98); ARTERIAL BLOOD PCO2 29.6 mmHg (35-45); ARTERIAL BLOOD PH 7.55 (7.35-7.45); ARTERIAL BLOOD PO2 180.3 mmHg (80-100); ARTERIAL BLOOD TOTAL CO2 25.9 mmol/L (23-27)
--- NOTE | 2020-04-19 21:01 | RADIOLOGY REPORT (SQ) ---
EXAM DESCRIPTION: Site: CHEST SINGLE VIEW RP: XR CHEST 1 VIEW CLINICAL HISTORY: 54 years Male; check placement of new ETT; FINDINGS: AP chest at 2021. Since yesterday, endotracheal tube has been repositioned, tip now less than 1 cm above the kenzie. Enteric tube extends into the stomach. Lung remains clear. No pneumothorax or pleural effusion. IMPRESSION: Endotracheal tube tip less than 1 cm above kenzie. Consider repositioning.
[2020-04-19] MEDS: FAMOTIDINE INJ/PF 20 MG/2 ML SDV IV SCH (21:36)
[2020-04-19] MEDS ORDERED: FAMOTIDINE INJ/PF 20 MG/2 ML SDV IV SCH (22:00)
[2020-04-20 06:48] LABS: ANION GAP 9 (5-19); BLOOD UREA NITROGEN 55 mg/dL (7-20); CALCIUM 8.4 mg/dL (8.4-10.2); CARBON DIOXIDE 27 mmol/L (22-30); CHLORIDE 102 mmol/L (98-107); GLUCOSE 120 mg/dL (75-110); POTASSIUM 3.9 mmol/L (3.6-5.0)
[2020-04-20] MEDS: HEPARIN SOD (PORCINE) 5,000 UNIT/ML 1 ML VIAL SUBCUT SCH ×3 (07:42→21:19)
[2020-04-20] MEDS: LACTULOSE SYRUP 20 GM/30 ML UDCUP PO SCH ×4 (07:43→21:19)
[2020-04-20 08:16] LABS: MEAN CORPUSCULAR HEMOGLOBIN 34.5 pg (27.0-33.4); MEAN CORPUSCULAR HGB CONC 33.9 g/dL (32.0-36.0); MEAN CORPUSCULAR VOLUME 102 fl (80-97); RED BLOOD COUNT 2.25 10^6/uL (4.35-5.55); RED CELL DISTRIBUTION WIDTH 15.7 % (11.5-14.0); WHITE BLOOD COUNT 7.1 10^3/uL (4.0-10.5)
[2020-04-20 08:52] LABS: HEMOGLOBIN 7.8 g/dL (13.5-17.0)
[2020-04-20 08:55] LABS: PLATELET COUNT 64 10^3/uL (150-450)
[2020-04-20 09:15] LABS: ANION GAP 11 (5-19); BLOOD UREA NITROGEN 52 mg/dL (7-20); CALCIUM 8.4 mg/dL (8.4-10.2); CARBON DIOXIDE 26 mmol/L (22-30); CHLORIDE 102 mmol/L (98-107); GLUCOSE 120 mg/dL (75-110); POTASSIUM 3.5 mmol/L (3.6-5.0)
[2020-04-20] MEDS: RIFAXIMIN 550 MG TABLET PO SCH ×2 (10:29→21:20)
[2020-04-20] MEDS: LEVETIRACETAM 1000 MG/NACL-ISO 1,000 MG/100 ML RTUPB IV SCH ×2 (10:29→21:19)
[2020-04-20] MEDS: CEFTRIAXONE 2 GM/D5W RTU 2 GM/50 ML RTUPB IV SCH (10:29)
[2020-04-20 10:36] LABS: ARTERIAL BLOOD BASE EXCESS 3.5 mmol/L; ARTERIAL BLOOD FIO2 35%; ARTERIAL BLOOD H2CO3 1.05 mmol/L (1.05-1.35); ARTERIAL BLOOD HCO3 26.8 mmol/L (20-24); ARTERIAL BLOOD O2 SATURATION 99.3 % (94-98); ARTERIAL BLOOD TOTAL CO2 27.9 mmol/L (23-27)
--- NOTE | 2020-04-20 11:44 | PDOC CRITICAL CARE PROG REPORT ---
General Date:: 04/20/20 ICU Day:: 5 Ventilator Day:: 5 Hospital Day:: 5 Resuscitation Status: Full Code Events in the past 12 to 24 Hours:: The patient remains in acoma on the ventialtor. He may have had a series of short seizure following admissin. Getting EEG now Loaded with keppra. [place] guarded 04/18 The patient remains on the ventilator. has been hemodynamically stable. His pH is elevated his AM. it appears that we overshot correcting his ph with the bicarb drip since curtailed. A new dialysis catheter was placed last night. the patient is profoundly oligusic. He will get dialyzed today. He is not arousable still despite being off sedation. Ammonia level has come way down to just over 100. 04/19 The patient remains on the ventilator. Wea re weaning off Versed. His PH is slowing coming towards normal; The patient has show no signof significant arousal to date. He has started to make some urine. he made about 550 in the past 24 hours. Will likely run short dialysis today as there is dialysis on the weekend. 04/20 The patient remains in the ICU He is on the ventilator He had dialysis on and Wednesday. Despite no sedation the patient does not move or open his eyes I Have ordered an MRI of the Brain. i spoke to a Dr. Tejada at [facility]. He was going to look into arranging a possible transfer to their facility. The patient did not start making some urine. he put out about 640cc yesterday. Reason for ICU Addmission:: Unconsciousness, acute Respiraory Failure, [place] mpensated cirrhosis Physical Exam Vital Signs: Temp Pulse Resp BP Pulse Ox 97.5 F 79 15 103/52 L 100 04/20/20 09:50 04/20/20 08:00 04/20/20 08:00 04/20/20 08:00 04/20/20 09:19 Intake & Output 04/19/20 04/20/20 04/21/20 06:59 06:59 06:59 Intake Total 2796 394 30 Output Total 520 640 Balance 2276 -246 30 Weight 93 kg 88.3 kg Weight/Height Weight 88.3 kg Height 5 ft 9 in Laboratory/Radiographs Laboratory Results: 04/20/20 06:05 04/20/20 08:35 1104/19/20 04/20/20 10:42 18:00 06:05 WBC RBC Hgb Hct MCV MCH MCHC RDW Plt Count Carbonic Acid 0.89 L HCO3/H2CO3 Ratio 28:1 ABG pH 7.55 H ABG pCO2 29.6 L ABG pO2 180.3 H ABG HCO3 25.0 H ABG O2 Saturation 99.4 H ABG Base Excess 2.6 FiO2 35% Sodium 137.8 137.6 Potassium 3.8 3.9 Chloride 102 102 Carbon Dioxide 25 27 Anion Gap 11 9 BUN 65 H 55 H Creatinine 2.96 H 2.41 H Est GFR ( Amer) 27 L 34 L Glucose 127 H 120 H Calcium 8.3 L 8.4 Ammonia 04/20/20 04/20/20 04/20/20 06:05 06:05 08:35 WBC 7.1 RBC 2.25 L Hgb 7.8 L Hct 23.0 L MCV 102 H MCH 34.5 H MCHC 33.9 RDW 15.7 H Plt Count 64 L Carbonic Acid HCO3/H2CO3 Ratio ABG pH ABG pCO2 ABG pO2 ABG HCO3 ABG O2 Saturation ABG Base Excess FiO2 Sodium 138.8 Potassium 3.5 L Chloride 102 Carbon Dioxide 26 Anion Gap 11 BUN 52 H Creatinine 2.64 H Est GFR ( Amer) 31 L Glucose 120 H Calcium 8.4 Ammonia 13.5 04/20/20 10:27 WBC RBC Hgb Hct MCV MCH MCHC RDW Plt Count Carbonic Acid 1.05 HCO3/H2CO3 Ratio 25:1 ABG pH 7.50 H ABG pCO2 35.0 ABG pO2 178.0 H ABG HCO3 26.8 H ABG O2 Saturation 99.3 H ABG Base Excess 3.5 FiO2 35% Sodium Potassium Chloride Carbon Dioxide Anion Gap BUN Creatinine Est GFR ( Amer) Glucose Calcium Ammonia 04/16/20 12:23 CK-MB (CK-2) 3.84 Troponin I 0.046 NT-Pro-B Natriuret Pep 772 H Impressions: Head CT 04/16/20 12:28 IMPRESSION: NORMAL BRAIN CT WITHOUT CONTRAST. EVIDENCE OF ACUTE STROKE: NO. Cervical Spine CT 04/16/20 12:59 IMPRESSION: MILD DEGENERATIVE DISC DISEASE. NO ACUTE FINDINGS IN THE CERVICAL SPINE. Renal Ultrasound 04/17/20 00:00 IMPRESSION: NORMAL RENAL AND BLADDER ULTRASOUND. Chest X-Ray 04/19/20 20:01 IMPRESSION: Endotracheal tube tip less than 1 cm above kenzie. Consider repositioning. Assessment and Plan - Diagnosis (1) Acute and subacute hepatic failure with coma Is this a current diagnosis for this admission?: Yes Plan: The patient has a long history of alcohol related cirrhosis. he presented with sudden alteration of mental status 2 days ago. His ammonia level was very elevated at that time. 04/20 the atient has nt awoken despit a normal ammonia level. Has been off sedation except for a few days ago since his arrival. Head CYT on 04/16 was thought ot be normal. The patient did have atoixic /metabolic encephaloipathy by EEG. I have ordered an MRI to further delve into hios mental status. (2) Altered mental status Qualifiers: Altered mental status type: coma Coma depth: [place] coma 3-8 Coma timing: in the field (EMT or ambulance) Qualified Code(s): R40.2431 - [place] coma scale score 3-8, in the field [EMT or ambulance] Is this a current diagnosis for this admission?: Yes Plan: Patietr comartose. Bucio s been placed on ventialtor. He is on Rifaximinand lactulose for his elevated ammonia level. There may be an element of uremia as well. EEG being done presently CT head was unremarkable. 04/18 his EEG did not show obvious seizure activity. There is generalized slowing consistent with hepatic encephalopathy. he patient remains off sedation. Little change in neuro status. We are weaning off verse. Ammonia ;level was 115 yesterday. No spontaneous movement or eye opening. (3) Hyperammonemia Is this a current diagnosis for this admission?: Yes Plan: 04/20 His ammonia level today is in the normal range. (4) Acute kidney injury Is this a current diagnosis for this admission?: Yes (5) Infection Is this a current diagnosis for this admission?: Yes Plan: No definite signs of infx. CXR did show an overt pneumonia. the patient has been afebbrile. Initla UA was unremarkable for infx. Has been afebbbrile. Inital blood culture negative. The patient has a a history of ascites but no major evidence of ascites at this tie. ' WBC remains elevated , however. 11/20 His inital blood cultures remain negative. he remains on Ceftriaxone 04/20. Blood cultures from 04/16 were negative. WBC has trended to the normal range. has been afebbrile the past several days. Has been on empiric Rocephin since admission. (6) Anemia Is this a current diagnosis for this admission?: Yes Plan: Stool guiaic and NGT aspirate were guaic negative. His Hb dropped 2 points from 04/17 to 04/18. Platelets haave dropped from 144 to 64 but stabilzed in the low 60s. will monitor. 04/20/ his Hb ahas trackled down thepast few days but there is no overt signf bleeding Lates Hb 7.8 up from yesterday. Platelets hovering in the 60s. (7) Acute respiratory failure Is this a current diagnosis for this admission?: Yes Plan: The patient had to be intuabted in the ED upon arrival for his severe obtundation. The patient remains on mechanical ventialtion primarily becuses of his mental status. His lung fioeld remaisn clear. His p/F ratio is over 500. suggesting no major pulm abnormalitiy. Critical Time Critical Time (minutes): 40 Level of Care: ICU -: 1. The care of a critical patient is a dynamic process. This note is a medical device sales representative synopsis but static in nature. The timeframe for treatments given in order is not necessarily the actual time these treatments may have been done. 2. This patient requires critical care secondary to ongoing requirements for therapy not offered or safe outside the critical care environment. Transfer to a lower level of care will result in altered life or limb morbidity and mortality. 3. Multidisciplinary rounds completed. 4. ABCDE bundle addressed.
[2020-04-20] MEDS: FAMOTIDINE INJ/PF 20 MG/2 ML SDV IV SCH (21:20)
[2020-04-21] MEDS: HEPARIN SOD (PORCINE) 5,000 UNIT/ML 1 ML VIAL SUBCUT SCH ×2 (05:04→13:27)
[2020-04-21] MEDS: LACTULOSE SYRUP 20 GM/30 ML UDCUP PO SCH ×3 (05:22→16:36)
[2020-04-21 08:37] LABS: ARTERIAL BLOOD BASE EXCESS 1.8 mmol/L; ARTERIAL BLOOD H2CO3 1.01 mmol/L (1.05-1.35); ARTERIAL BLOOD HCO3 25.1 mmol/L (20-24); ARTERIAL BLOOD O2 SATURATION 99.3 % (94-98); ARTERIAL BLOOD PCO2 33.4 mmHg (35-45); ARTERIAL BLOOD PH 7.49 (7.35-7.45); ARTERIAL BLOOD PO2 170.9 mmHg (80-100); ARTERIAL BLOOD TOTAL CO2 26.1 mmol/L (23-27)
[2020-04-21 08:38] LABS: ARTERIAL BLOOD FIO2 35%
[2020-04-21] MEDS: RIFAXIMIN 550 MG TABLET PO SCH (09:21)
[2020-04-21] MEDS: NORMAL SALINE 1000 ML 1,000 ML IV PRN (09:21)
[2020-04-21] MEDS: CEFTRIAXONE 2 GM/D5W RTU 2 GM/50 ML RTUPB IV SCH (09:22)
[2020-04-21 09:36] LABS: HEPATITIS C QUANTITATION HCV Not Detected IU/mL (.)
--- NOTE | 2020-04-21 10:01 | PDOC CRITICAL CARE PROG REPORT ---
General Date:: 04/21/20 ICU Day:: 6 Ventilator Day:: 6 Hospital Day:: 6 Resuscitation Status: Full Code Events in the past 12 to 24 Hours:: The patient remains in acoma on the ventialtor. He may have had a series of short seizure following admissin. Getting EEG now Loaded with keppra. [place] guarded 04/18 The patient remains on the ventilator. has been hemodynamically stable. His pH is elevated his AM. it appears that we overshot correcting his ph with the bicarb drip since curtailed. A new dialysis catheter was placed last night. the patient is profoundly oligusic. He will get dialyzed today. He is not arousable still despite being off sedation. Ammonia level has come way down to just over 100. 04/19 The patient remains on the ventilator. We are weaning off Versed. His PH is slowing coming towards normal; The patient has show no signof significant arousal to date. He has started to make some urine. he made about 550 in the past 24 hours. Will likely run short dialysis today as there is dialysis on the weekend. 04/20 The patient remains in the ICU He is on the ventilator He had dialysis on and Wednesday. Despite no sedation the patient does not move or open his eyes I Have ordered an MRI of the Brain. I spoke to a Dr. Rivas at [facility]. He was going to look into arranging a possible transfer to their facility. The patient did not start making some urine. he put out about 640cc yesterday. 04/[address] rivas. i told him the patient is not waking up. They ewere willing to acept thepatient in transfer. I have ordered an MRI Brain. I ahve stopped his Keppra. Has nt receive any sedation in thepast few days. Patient does not arous or move. He will take spontaneous breaths, however. Urine output appears to have increased a bit. Reason for ICU Addmission:: Unconsciousness, acute Respiraory Failure, Decompensated cirrhosis Physical Exam Vital Signs: Temp Pulse Resp BP Pulse Ox 97.2 F 71 14 111/56 L 100 04/21/20 09:35 04/20/20 22:00 04/21/20 06:34 04/21/20 06:34 04/21/20 07:54 Intake & Output 1104/21/20 04/22/20 06:59 06:59 06:59 Intake Total 394 301 189 Output Total 640 920 90 Balance -246 -619 99 Weight 88.3 kg 91.2 kg Weight/Height Weight 91.2 kg Height 5 ft 9 in Neurological exam: PRESENT: other - The patient does not arouse. His GCS is about 3. He does take spontaneous breaths. Laboratory/Radiographs Laboratory Results: 04/20/20 06:05 04/20/20 08:35 04/20/20 04/21/20 10:27 08:29 Carbonic Acid 1.05 1.01 L HCO3/H2CO3 Ratio 25:1 24:1 ABG pH 7.50 H 7.49 H ABG pCO2 35.0 33.4 L ABG pO2 178.0 H 170.9 H ABG HCO3 26.8 H 25.1 H ABG O2 Saturation 99.3 H 99.3 H ABG Base Excess 3.5 1.8 FiO2 35% 35% 04/16/20 12:23 CK-MB (CK-2) 3.84 Troponin I 0.046 NT-Pro-B Natriuret Pep 772 H Impressions: Head CT 04/16/20 12:28 IMPRESSION: NORMAL BRAIN CT WITHOUT CONTRAST. EVIDENCE OF ACUTE STROKE: NO. Cervical Spine CT 04/16/20 12:59 IMPRESSION: MILD DEGENERATIVE DISC DISEASE. NO ACUTE FINDINGS IN THE CERVICAL SPINE. Renal Ultrasound 04/17/20 00:00 IMPRESSION: NORMAL RENAL AND BLADDER ULTRASOUND. Chest X-Ray 04/19/20 20:01 IMPRESSION: Endotracheal tube tip less than 1 cm above kenzie. Consider repositioning. Assessment and Plan - Diagnosis (1) Acute and subacute hepatic failure with coma Is this a current diagnosis for this admission?: Yes (2) Altered mental status Qualifiers: Altered mental status type: coma Coma depth: [place] coma 3-8 Coma timing: in the field (EMT or ambulance) Qualified Code(s): R40.2431 - [place] coma scale score 3-8, in the field [EMT or ambulance] Is this a current diagnosis for this admission?: Yes Plan: Patietr comartose. Bucio s been placed on ventialtor. He is on Rifaximinand lactulose for his elevated ammonia level. There may be an element of uremia as well. EEG being done presently CT head was unremarkable. 04/18 his EEG did not show obvious seizure activity. There is generalized slowing consistent with hepatic encephalopathy. he patient remains off sedation. Little change in neuro status. We are weaning off verse. Ammonia ;level was 115 yesterday. No spontaneous movement or eye opening. 04/22 Patient is not waking up. I fear that he may have suffered irreversible brain damage. I have ordered an MRI. I have stopped Keppra as there is no eviedence of ongoing seizure actiity. Ammonia level had normalized by yesterday. (3) Hyperammonemia Is this a current diagnosis for this admission?: Yes Plan: 04/20 His ammonia level today is in the normal range. (4) Acute kidney injury Is this a current diagnosis for this admission?: Yes Plan: Creatinineis up to close to 5. Urine output is very poor. Will ask Nephrology to see thepatient Check urine Na+. 04/18 The poatient remins profoundly oliguric. His last creat is 4.333. The patient may have entered into a type 1 hepatorenal picture. He ois to get dialysis today. Renal Us showed normal kidney echogenicity. 04/19 The patient may be showing some sign of renal recovery. Put out 500ccc of urine in the past 24 hours. Dialysis catheter is int eh right groin. 04/21 Acute on chronic kidney diseases. Creat most reently was 2.64. His urine output does appear to be picking up , hoxever. (5) Infection Is this a current diagnosis for this admission?: Yes (6) Anemia Is this a current diagnosis for this admission?: Yes Plan: Stool guiaic and NGT aspirate were guaic negative. His Hb dropped 2 points from 04/17 to 04/18. Platelets haave dropped from 144 to 64 but stabilzed in the low 60s. will monitor. 04/20/ his Hb ahas trackled down thepast few days but there is no overt signf bleeding Lates Hb 7.8 up from yesterday. Platelets hovering in the 60s. 04/21 His HB is stable. No sihgn of gi bleed. (7) Acute respiratory failure Is this a current diagnosis for this admission?: Yes Plan: The patient had to be intuabted in the ED upon arrival for his severe obtundation. The patient remains on mechanical ventialtion primarily becuses of his mental s tatus. His lung fioeld remaisn clear. His p/F ratio is over 500. suggesting no major pulm abnormality. cannot conntemplate any weaning maneuver given his mental status Critical Time Critical Time (minutes): 25 Level of Care: ICU -: 1. The care of a critical patient is a dynamic process. This note is a patient access representative synopsis but static in nature. The timeframe for treatments given in order is not necessarily the actual time these treatments may have been done. 2. This patient requires critical care secondary to ongoing requirements for therapy not offered or safe outside the critical care environment. Transfer to a lower level of care will result in altered life or limb morbidity and mortality. 3. Multidisciplinary rounds completed. 4. ABCDE bundle addressed.
[2020-04-21 11:09] LABS: ANION GAP 12 (5-19); BLOOD UREA NITROGEN 63 mg/dL (7-20); CALCIUM 8.6 mg/dL (8.4-10.2); CARBON DIOXIDE 24 mmol/L (22-30); CHLORIDE 102 mmol/L (98-107); GLUCOSE 129 mg/dL (75-110); POTASSIUM 4.1 mmol/L (3.6-5.0)
--- NOTE | 2020-04-21 12:52 | RADIOLOGY REPORT (SQ) ---
EXAM DESCRIPTION: CT HEAD WITHOUT IMAGES COMPLETED DATE/TIME: 04/21/2020 12:34 pm REASON FOR STUDY: Not waking up despite no sedation COMPARISON: 04/16/2020. TECHNIQUE: Axial images acquired through the brain without intravenous contrast. Images reviewed wi th bone, brain and subdural windows. Additional sagittal and coronal reconstructions were generated. Images stored on PACS. All CT scanners at this facility use dose modulation, iterative reconstruction, and/or weight based d osing when appropriate to reduce radiation dose to as low as reasonably achievable (ALARA). [facility]: Dose Right [facility]: CareDose [facility]: Dose Right [facility]: Teradose 4D [facility]: [employer] RADIATION DOSE: CT Rad equipment meets quality standard of care and radiation dose reduction techniq ues were employed. CTDIvol: 53.2 mGy. DLP: 1097 mGy-cm. mGy. LIMITATIONS: None. FINDINGS: VENTRICLES: Normal size and contour. CEREBRUM: No masses. No hemorrhage. No midline shift. No evidence for acute infarction. Normal gra y/white matter differentiation. No areas of low density in the white matter. CEREBELLUM: No masses. No hemorrhage. No alteration of density. No evidence for acute infarction. EXTRAAXIAL SPACES: No fluid collections. No masses. ORBITS AND GLOBE: No intra- or extraconal masses. Normal contour of globe without masses. CALVARIUM: No fracture. PARANASAL SINUSES: No fluid or mucosal thickening. SOFT TISSUES: No mass or hematoma. OTHER: No other significant finding. IMPRESSION: NORMAL BRAIN CT WITHOUT CONTRAST. EVIDENCE OF ACUTE STROKE: NO. COMMENT: Quality ID # [id number]: Final reports with documentation of one or more dose reduction techniques (e.g., Automated exposure control, adjustment of the mA and/or kV according to patient size, use of iterative reconstruction technique) TECHNICAL DOCUMENTATION: JOB ID: [id number] 2010 [employer]- All Rights Reserved Reading location - IP/workstation name: [email or web address]
--- NOTE | 2020-04-21 14:22 | PDOC TRANSFER SUMMARY ---
General Admission Date/PCP: 04/16/20 16:33 HUGO TEJADA Resuscitation Status: Full Code - Transfer Diagnosis (1) Acute and subacute hepatic failure with coma Is this a current diagnosis for this admission?: Yes Diagnosis Summary: The patient has a long history of alcohol related cirrhosis. He was found by his shai obtunded in the ealry AM 5 dya ago and she summoned an ambulance. Apparently whe he came to the ED he was "gupp" breathing and poorly resonsive so he was intubated. Intial Head Ct was unremarkable. He subsequently had an EEG showing some PLEDS and what appeared to be a toxic/met encephalopathy. His initial ammonia level was over 1000. It has now normalized. the patient unfortunately remains unresponsive. Repeat CT head was unremarkabke ( we did not have a ventialtor compatible MRI). Has been off sedation for several days now. The patient is follwed by the Hepatology service at [facility]. I have spoken with Dr. Tejada today who accepted the patient. (2) Altered mental status Is this a current diagnosis for this admission?: Yes Diagnosis Summary: as noted inhepatic failure portion. (3) Acute kidney injury Is this a current diagnosis for this admission?: Yes Diagnosis Summary: His normal Creatinne according to his is about 2.9. It is now 2.55 It had reached a high of 4.91 on day 2 and since trended down. he was dialyzed and Wednesday. Urione output has been improving and thepatient put out 920 cc on 04/21. (4) Infection Is this a current diagnosis for this admission?: Yes Diagnosis Summary: No evidence of infx. patient has been afebbrile . Was treated with Rocephin. initial blood cultures negative. No gross evidence of pneumonia. The patient has a history of ascites but we did dnot appreciate much ascites at this time when he arrived. (5) Anemia Is this a current diagnosis for this admission?: Yes Diagnosis Summary: Hb onadmissionwas 9.7. It has drifted down to 7.8 but there si no sign of overt bleeding. (6) Acute respiratory failure Is this a current diagnosis for this admission?: Yes - Transfer Medications Home Medications: B Complx/C/Folic/Zinc/Copper/E [Eql Stress B-Complex Tablet] 1 tab PO DAILY 04/16/20 Calcium Carbonate/Vitamin D3 [Calcium 600 mg-D3 20 Mcg Tab] 1 tab PO BID Cetirizine HCl [Zyrtec 10 mg Tablet] 10 mg PO DAILYP PRN 04/16/20 Ciprofloxacin HCl [Cipro 500 mg Tablet] 500 mg PO DAILY 04/16/20 Famotidine [Pepcid 20 mg Tablet] 40 mg PO DAILY 04/16/20 Hydrocodone/Acetaminophen [[place] 5-325 mg Tablet] 1 tab PO Q6HP PRN 04/16/20 Lactulose [Enulose] 30 ml PO TIDP PRN 04/16/20 Mirtazapine [Remeron 15 mg Tablet] 7.5 mg PO QHS 04/16/20 Multivit-Minerals/FA/Lycopene [One Daily Tablet] 1 tab PO DAILY 04/16/20 Omeprazole 40 mg PO DAILY 04/16/20 Ondansetron [Zofran Odt 4 mg Tablet] 4 mg PO Q8HP PRN 04/16/20 Rifaximin [Xifaxan 550 mg Tablet] 550 mg PO BID 04/16/20 Transfer Medications: Current Medications Acetaminophen (Acetaminophen 650 Mg Supp.Rect) 650 mg CA Q4HP PRN PRN Reason: FEVER > 102 Stop: 05/16/20 23:11 Famotidine (Famotidine Inj/Pf 20 Mg/2 Ml Sdv) 20 mg IV QHS [facility] Stop: 05/19/20 21:59 Last Admin: 04/20/20 21:20 Dose: 20 mg Documented by: Heparin Sodium (Porcine) (Heparin Sod (Porcine) 5,000 Unit/Ml 1 Ml Vial) 5,000 unit SUBCUT Q8 RANJITH Stop: 05/18/20 13:59 Last Admin: 04/21/20 13:27 Dose: Not Given Documented by: Ceftriaxone Sodium/Dextrose (Rocephin Rtu 2 Gm/D5w 50 Ml Premix Bag) 2 gm in 50 mls @ 100 mls/hr IV DAILY [facility] Stop: 04/23/20 17:29 Last Infusion: 04/21/20 10:00 Dose: Infused Documented by: Sodium Chloride (Nacl 0.9% 1000 Ml Iv Soln) 1,000 mls @ 3 mls/hr IV CONTINUOUS PRN PRN Reason: THIS MED IS NOT "PRN" Stop: 05/17/20 11:37 Last Admin: 04/21/20 09:21 Dose: 3 mls/hr Documented by: Midazolam HCl (Versed Rtu 50 Mg/100 Ml Premix Bag) 50 mg in 100 mls @ 0 mls/hr IV CONTINUOUS PRN; Protocol PRN Reason: THIS MED IS NOT "PRN" Stop: 04/25/20 08:15 Last Titration: 04/20/20 10:58 Dose: 0 mg/hr, 0 mls/hr Documented by: Rocuronium [place] 500 mg/ (Sodium Chloride) 500 mls @ 0 mls/hr IV CONTINUOUS PRN; Protocol PRN Reason: THIS MED IS NOT "PRN" Stop: 05/18/20 18:01 Lactulose (Lactulose Syrup 20 Gm/30 Ml Udcup) 30 gm PO Q6H RANJITH Stop: 05/17/20 08:59 Last Admin: 04/21/20 09:21 Dose: 30 gm Documented by: Lorazepam (Lorazepam Inj 2 Mg/1 Ml Vial) 1 mg IV Q2HP PRN PRN Reason: SEIZURES Stop: 04/23/20 23:10 Last Admin: 04/17/20 03:41 Dose: 1 mg Documented by: Rifaximin (Rifaximin 550 Mg Tablet) 550 mg PO Q12 RANJITH Stop: 04/24/20 13:59 Last Admin: 04/20/20 21:20 Dose: 550 mg Documented by: - Allergies Allergies/Adverse Reactions: codeine Allergy (Verified 04/16/20 14:21) prednisone Allergy (Verified 04/16/20 14:21) Hospital Course Hospital Course: the patient has been stable froma cardic point of view. his main problem appears to be this obtundation as noted. He has been hemodynamically stable and not on any pressors. Physical Exam Vital Signs: Temp Pulse Resp BP Pulse Ox 97.3 F 71 15 102/64 100 04/21/20 13:00 04/20/20 22:00 04/21/20 13:00 04/21/20 12:35 04/21/20 13:00 Intake & Output 04/20/20 04/21/20 04/22/20 06:59 06:59 06:59 Intake Total 394 301 239 Output Total 640 920 180 Balance -246 -619 59 Weight 88.3 kg 91.2 kg Results Laboratory Results: 04/20/20 06:05 04/21/20 10:15 04/21/20 04/21/20 08:29 10:15 Carbonic Acid 1.01 L HCO3/H2CO3 Ratio 24:1 ABG pH 7.49 H ABG pCO2 33.4 L ABG pO2 170.9 H ABG HCO3 25.1 H ABG O2 Saturation 99.3 H ABG Base Excess 1.8 FiO2 35% Sodium 138.4 Potassium 4.1 Chloride 102 Carbon Dioxide 24 Anion Gap 12 BUN 63 H Creatinine 2.55 H Est GFR ( Amer) 32 L Glucose 129 H Calcium 8.6 04/16/20 12:23 Blood Blood Culture - Final NO GROWTH IN 5 DAYS 04/16/20 12:23 CK-MB (CK-2) 3.84 Troponin I 0.046 NT-Pro-B Natriuret Pep 772 H Impressions: Cervical Spine CT 04/16/20 12:59 IMPRESSION: MILD DEGENERATIVE DISC DISEASE. NO ACUTE FINDINGS IN THE CERVICAL SPINE. Renal Ultrasound 04/17/20 00:00 IMPRESSION: NORMAL RENAL AND BLADDER ULTRASOUND. Chest X-Ray 04/19/20 20:01 IMPRESSION: Endotracheal tube tip less than 1 cm above kenzie. Consider repositioning. Head CT 04/21/20 12:00 IMPRESSION: NORMAL BRAIN CT WITHOUT CONTRAST. EVIDENCE OF ACUTE STROKE: NO.
[2020-04-21 15:34] LABS: FREE T4 (FREE THYROXINE) 2.57 ng/dL (0.78-2.19)
[2020-04-21 15:48] LABS: THYROID STIMULATING HORMONE 1.3 uIU/mL (0.47-4.68)
[2020-04-21 16:31] VITALS: BP 101/51
== END 2020-04-21 17:54 | disposition short-term general hospital (02) | DRG 441 ==
LOC: ER 12:25 → EH 16:33 → ICU 22:24
PROVIDERS: ADMIT Internal Medicine; ATTEND Internal Medicine
PROC: 5A1955Z Respiratory Ventilation, Greater than 96 Consecutive Hours (ICD-10-PCS; principal; 2020-04-16)
PROC: 0BH17EZ Insertion of Endotracheal Airway into Trachea, Via Natural or Artificial Opening (ICD-10-PCS; 2020-04-16)
PROC: 06HM33Z Insertion of Infusion Device into Right Femoral Vein, Percutaneous Approach (ICD-10-PCS; 2020-04-17)
PROC: 5A1D70Z Performance of Urinary Filtration, Intermittent, Less than 6 Hours Per Day (ICD-10-PCS; 2020-04-18)
DX: K72.01 Acute and subacute hepatic failure with coma (principal); J96.00 Acute respiratory failure, unspecified whether with hypoxia or hypercapnia; N17.9 Acute kidney failure, unspecified; K76.6 Portal hypertension; E87.2 Acidosis; E72.4 Disorders of ornithine metabolism; K70.31 Alcoholic cirrhosis of liver with ascites; D64.9 Anemia, unspecified; K46.9 Unspecified abdominal hernia without obstruction or gangrene; E87.5 Hyperkalemia; K42.9 Umbilical hernia without obstruction or gangrene; Z79.899 Other long term (current) drug therapy; Z88.6 Allergy status to analgesic agent; Z88.8 Allergy status to other drugs, medicaments and biological substances
CPT/HCPCS: 36415; 36556; 51702; 70450; 71045; 72125; 76770; 80048; 80053; 80307; 81001; 82140; 82553; 82570; 82803; 83605; 83690; 83735; 83880; 84100; 84145; 84300; 84439; 84443; 84484; 85025; 85027; 85610; 85730; 86317; 86704; 87040; 87340; 87522; 87635; 93005; 93010; 94002; 94003; 95819; 96360; 96361; 99285; 99291; 99152; A9270-GY; C9113; C9803; J0696; J1644; J1953; J2060; J2250; J2997; J3480; J3490; J7030; J7060; Q5105; S0028